=== PATIENT | female | born 1995 | race Two or more races ===

== ENCOUNTER 2024-09-21 10:45 | Outpatient (AMB) | payer MEDICAID, SELFPAY ==
--- NOTE | 2024-09-21 11:03 | OBCLNT_ITS ---
Vital Signs 09/21/24 11:09 Height 1.57 m Height Method Stated Weight 50.405 kg Weight Measurement Method Standing Scale BMI 20.3 BP 101/63 Blood Pressure Source Automatic Cuff Blood Pressure Location Left Upper Arm Position Sitting Respiration 18 Pulse 91 Pulse Source Monitor Temp 97.2 F Temp Source Oral Pulse Oximetry (%) 98 Oxygen Delivery Method Room Air Allergies/Home Meds Allergies & Medications Allergies No Known Allergies Allergy (Verified 09/21/24 11:04) Medication Reconciliation vits no.124-ferrous fum 27 mg iron-folic acid 800 mcg tablet ( Vitamin) 1 tab PO QDAY 06/29/23 [History Confirmed 09/21/24] Intake Visit Data Collection New Patient or Established: Established Patient (seen at 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 1. Little interest or pleasure in doing things: not at all 2. Feeling down, depressed, or hopeless: not at all Total score: 0 PHQ-9 3. Trouble falling or staying asleep, or sleeping too much: Not at all 4. Feeling tired or having little energy: Not at all 5. Poor appetite or overeating: Not at all 6. Feeling bad about yourself - or that you are a failure or have let yourself or your family down: Not at all 7. Trouble concentrating on things, such as reading the newspaper or watching television: Not at all 8. Moving or speaking so slowly that other people could have noticed? - Or the opposite - being so fidgety or restless that you have been moving around a lot more than usual: not at all 9. Thoughts that you would be better off or of hurting yourself in some way: Not at all Total score: 0 If you checked off any problems, how difficult have these problems made it for you to do your work, take care of things at home, or get along with other people?: not difficult at all Source: Developed by Drs. Saeed Alvarez, Maye Winter, Mitchel Owen and colleagues, with an educational karla from [employer]. Depression screen completed yes Social History Living Situation History Marital Status: Lives With: Family Housing: House Tobacco History Smoking Status: Never smoker Second Hand Smoke Exposure: No Alcohol History Alcohol Intake: Never Domestic Abuse History Do You Feel Safe at Home: Yes Past Medical History Past Medical History Have you ever been diagnosed with any of the following: Neurological Problems Seizures: No Cardiology Problems Congestive Heart Failure: No Respiratory Problems Chronic Obstructive Pulmonary Disease (COPD): No Stomache/Intestinal Problems Hepatitis: No Gall Bladder Disease: Yes ( Colorectal Cancer: No Genital/Urinary Problems Renal Disease: No Kidney Stones: No Polycystic Kidney Disease: No Neurogenic Bladder: No Inguinal Hernia: No Dialysis: No Reproductive Problems Breast Cancer: No Pelvic Inflammatory Disease: No Musculoskeletal Problems Bone Cancer: No Endocrine Problems Diabetes Mellitus Type 1: No Diabetes Mellitus Type 2: No Blood Problems Anemia: Yes Leukemia: No Hemophilia: No Thalassemia: No Sickle Cell Disease: No Clotting Problems: No Other Problems Blood Transfusions: No Blood Transfusion Reaction: No Anesthesia Reactions: No MRSA: No VRSA: No Vancomycin-Resistant Enterococci: No Human Immunodeficiency Virus (HIV): No Chicken Pox: No Measles: No Mumps: No Rubella (Sri Lankan Measles): No Pertussis: No Clostridium Difficile: No Cancer: No Cervical Cancer: No Lung Cancer: No Ovarian Cancer: No History of Present Illness HPI Narrative 29 yo for OBI. LMP 07/22/24. EDC 04/29/25. Menses q month x 4-5. happy with results of . no SAB complaints. c/o tiredness and increased saliva. No PMH, no social habit. c/s x2. first c/s was for distress. Father involved. OB Initial Visit OB Flowsheet OB Flowsheet Initial Weight: Not Recorded Date -?-?-?-?-?-?-?-?-?-?-?-?- EGA Weight Edema CTX Effacement BP Fundal ht Pres Dilation Effacement Station Visit Note Alb Glu FHR Mov 09/21/24 -?-?-?-?-?-?-?-?-?-?-?-?- 8w 5d 50.405 kg absent absent 101/63 8.0 29 yo for OBI. No SAB complaints. feels tired. For repeat c/s. OB panel today. schedule OB sono for viability. discuss SAB precaution. discuss diet and rest. continue PNV. RTC 4 week OB check Menstrual History Menstrual reliability: definite Flow: normal Menstrual regularity: regular Monthly: Yes Age at menarche: 11 On control pills at conception: Yes Associated symptoms (LMP): Reports fatigue OB History : 4 Para: 2 Hx # Pregnancies: 0 Hx Total # of Abortions (Spontaneous & Elective): 1 # of Living Children: 2 Delivery History 1st : Child's name: JERICHO date: 06/28/19 sex: female Delivery type: weight (lbs): 5896.701 g History of depression before or after : No 2nd : Child's name: DALE THOMAS date: 06/28/23 sex: male Delivery type: History of depression before or after : No Infection History & Risk Evaluation History of STDs: none HIV risk evaluation: low risk Hepatitis B risk evaluation: low risk Patient or partner has history of Genital Herpes: No Varicella/chicken pox status: immunized Genetic Screening & History Genetic Screening/Teratology Counseling - Includes patient, baby's father, or anyone in either family with: 1. Patient's age 35 years or older as of estimated date of delivery: No 2. Thalassemia (Uzbek, Bulgarian, Mediterranean, or Background); MCV less than 80: No 3. Neural Tube Defect (Meningomyelocele, Spina Bifida, or Anencephaly): No 4. Congenital Heart Defect: No 5. Down Syndrome: No 6. Shantanu-Sachs (Ashkenazi Anglican, Cajun, Frisian Bhutanese): No 7. Kory Disease (Ashkenazi Anglican): No 8. Familial Dysautonomia (Ashkenazi Anglican): No 9. Sickle Cell Disease or Trait (): No 10. Hemophilia or other blood disorders: No 11. Muscular Dystrophy: No 12. Cystic Fibrosis: No 13. Jeremy's Chorea: No 14. Mental Retardation/Autism: No 15. Other inherited genetic or chromosomal disorder: No 16. Maternal Metabolic Disorder (EG,TYPE 1 Diabetes, PKU): No 17. Patient or baby's father had a child with defects not listed above: No 18. Recurrent loss or a stillbirth: No 19. Medications (including supplements, vitamins, herbs or otc drugs)/illicit/recreational drugs/alcohol since last menstrual period: No 20. Any other: No Infection History 1. Live with someone with TB or exposed to TB: No 2. Rash or viral illness since last menstrual period: No 3. Hepatitis B,C: No Other (see comments) Source: [employer] Review of Systems Review of Systems Systems Reviewed: All systems reviewed, normal except as documented Constitutional Constitutional: Reports fatigue Endocrine Endocrine: Reports fatigue Exam Narrative Physical exam: 8 week size, low transverse skin incision General Limitations: no limitations General Appearance: alert, in no apparent distress, comfortable, cooperative, healthy appearing, well developed and well groomed Head Head exam: atraumatic, normocephalic and normal inspection Chest Chest inspection: Present normal inspection and symmetric chest wall rise Resp Respiratory exam: Present normal lung sounds bilaterally Card Cardiovascular exam: Present regular rate, normal rhythm and normal heart sounds Abdominal Abdominal exam: Present soft, normal bowel sounds and scar (low transverse skin incision) Psych Psychiatric exam: Present normal affect and normal mood Assessment & Plan Diagnosis / Problem List (1) Encounter for supervision of normal in multigravida in first trimester: Status: Acute (2) Previous section: Status: Acute Plan OB panel today, schedule OB sono for viability and Dates, sab precaution, continue PNV, comfort measure for 1st tri discomfort. RTC 4 week OBC Additional Plan Follow Up: 4 Weeks (obc) Office Procedures OB Clinic LOC & Office Proc's Nursing/Assessment Patient Status: Established Patient OB Clinic Nursing Assessment: BP Monitoring, Medication Reconciliation, Update PMH in EMR and Vital Signs OB Clinic Coordination of Care: Education Complex Pt/Fam, Consent,records obtained, informed consent, Lab and Imaging orders and Staff clarify orders Established Patient Charge Established Patient Point Assignment: 95 Established Patient Point Charge: EP Level 3 (80-115)
[2024-09-21 11:09] VITALS: BP 101/63; PULSE 91; RESP 18; TEMP 36.2; O2SAT 98; BMI 20.3
== END 2024-09-21 11:29 | disposition home or self-care (01) ==
LOC: HODSOBC 10:45
PROVIDERS: Supervising Provider Advanced Practice Midwife; Visit Provider Advanced Practice Midwife
DX: O09.291 Supervision of pregnancy with other poor reproductive or obstetric history, first trimester (principal); Z3A.08 8 weeks gestation of pregnancy; O34.211 Maternal care for low transverse scar from previous cesarean delivery
CPT/HCPCS: 99213; G0463

== ENCOUNTER 2024-10-23 08:25 | Outpatient (AMB) | payer MEDICAID, SELFPAY ==
[2024-10-23 08:36] VITALS: BP 101/68; PULSE 79; RESP 15; TEMP 36.6; O2SAT 98; BMI 21.0
--- NOTE | 2024-10-23 08:36 | OBCLNT_ITS ---
Vital Signs 10/23/24 08:36 Height 1.57 m Height Method Stated Weight 51.88 kg Weight Measurement Method Standing Scale BMI 21.0 BP 101/68 Blood Pressure Source Automatic Cuff Blood Pressure Location Right Upper Arm Position Sitting Respiration 15 Pulse 79 Pulse Source Monitor Temp 97.8 F Temp Source Oral Pulse Oximetry (%) 98 Oxygen Delivery Method Room Air Allergies/Home Meds Allergies & Medications Allergies No Known Allergies Allergy (Verified 10/23/24 08:37) Medication Reconciliation vits no.124-ferrous fum 27 mg iron-folic acid 800 mcg tablet ( Vitamin) 1 tab PO QDAY 06/29/23 [History Confirmed 10/23/24] doxylamine 10 mg-pyridoxine (vit B6) 10 mg tablet,delayed release (Diclegis) 1 tab PO BID 30 days #60 tabs 10/23/24 [Rx] Intake Visit Data Collection New Patient or Established: Established Patient (seen at [facility] within 3 years) Reason for Visit:: CARE Seen by Clinical Staff ONLY (RN/MA): No Private Investigator Surveillance Required: No Do You Feel Safe at Home: Yes Authorities Contacted: N/A PCP or OBGYN visit in last 3 months: Yes Hx Now: Yes Are you currently on any form of Control: No Pain Present Currently: No Pain Scale Used: Cunningham-Boyd/Numerical Pain scale:: 0 Smoking Status Smoking Status: Never smoker Questionnaires Covid-19 Vaccine Questionnaire Has patient been vacinated for Covid-19 Have you been vacinated for Covid-19: Yes PHQ-9 PHQ-2 Over the last 2 weeks, how often have you been bothered by any of the following problems? 1. Little interest or pleasure in doing things: not at all 2. Feeling down, depressed, or hopeless: not at all Total score: 0 PHQ-9 3. Trouble falling or staying asleep, or sleeping too much: Not at all 4. Feeling tired or having little energy: Not at all 5. Poor appetite or overeating: Not at all 6. Feeling bad about yourself - or that you are a failure or have let yourself or your family down: Not at all 7. Trouble concentrating on things, such as reading the newspaper or watching television: Not at all 8. Moving or speaking so slowly that other people could have noticed? - Or the opposite - being so fidgety or restless that you have been moving around a lot more than usual: not at all 9. Thoughts that you would be better off or of hurting yourself in some way: Not at all Total score: 0 Source: Developed by Drs. Saeed Alvarez, Maey Winter, Mitchel Owen and colleagues, with an educational karla from [facility]. 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 No SAB complaints. feels tired. For repeat c/s. OB panel today. schedule OB sono for viability. discuss SAB precaution. discuss diet and rest. continue PNV. RTC 4 week OB check 10/23/24 -?-?-?-?-?-?-?-?-?-?-?-?- 10w 3d 51.88 kg 101/68 absent unknown 10 135 absent doing well. denies sab complaints, increase nausea and vomiting. NIPT and carrier screen today, labs pending, schedule MFM sono. comfort measure for nausea. diclegesis, review sab precaution, rtc 4 week MARNIE Calculator Estimated Delivery Date Method Current WG Current Estimate 05/18/25 Ultrasound #1 10w 3d Other Estimates 04/28/25 LMP (Certain) 13w 2d Notes Visit Date: 10/23/24 Last Updated by: Simona Spencer CNM 29 yo sono 09/29/24: 7 week: 05/18/25. Prev c/s x1. wrong dates Office Procedures OB Clinic LOC & Office Proc's Nursing/Assessment Patient Status: Established Patient OB Clinic Nursing Assessment: Medication Reconciliation, Update PMH in EMR and Vital Signs OB Clinic Coordination of Care: Complex Care and Chronic Disease 1-5, Consent,records obtained, informed consent, Education Simp Pt/Fam, Lab and Imaging orders, Results/Orders obtained and Staff clarify orders Special Needs: Heart tones Established Patient Charge Established Patient Point Assignment: 135 Established Patient Point Charge: EP Level 4 (120-155) Assessment & Plan Diagnosis / Problem List (1) Encounter for supervision of normal in multigravida in first trimester: Status: Acute Plan NIPT and carrier screen today, schedule MFM anatomy scan, sab precaution,rtc 4 week ob check, diclegesis bid #60, comfort measure for nausea Additional Plan Follow Up: 4 Weeks (obc)
== END 2024-10-23 09:05 | disposition home or self-care (01) ==
LOC: HODSOBC 08:25
PROVIDERS: Supervising Provider Advanced Practice Midwife; Visit Provider Advanced Practice Midwife
DX: Z34.81 Encounter for supervision of other normal pregnancy, first trimester (principal); Z3A.10 10 weeks gestation of pregnancy
CPT/HCPCS: 99214; G0463

== ENCOUNTER 2024-11-29 08:47 | Outpatient (AMB) | payer MEDICAID, SELFPAY ==
[2024-11-29 09:04] VITALS: BP 98/62; PULSE 84; RESP 17; TEMP 36.5; O2SAT 98; BMI 22.1
--- NOTE | 2024-11-29 09:04 | AMB.OBVISIT ---
Vital Signs 11/29/24 09:04 Height 1.57 m Height Method Stated Weight 54.601 kg Weight Measurement Method Standing Scale BMI 22.1 BP 98/62 Blood Pressure Source Automatic Cuff Blood Pressure Location Right Upper Arm Position Sitting Respiration 17 Pulse 84 Pulse Source Monitor Temp 97.7 F Temp Source Temporal Artery Scan Pulse Oximetry (%) 98 Oxygen Delivery Method Room Air Allergies/Home Meds Allergies & Medications Allergies No Known Allergies Allergy (Verified 11/29/24 09:06) Medication Reconciliation vits no.124-ferrous fum 27 mg iron-folic acid 800 mcg tablet ( Vitamin) 1 tab PO QDAY 06/29/23 [History Confirmed 11/29/24] doxylamine 10 mg-pyridoxine (vit B6) 10 mg tablet,delayed release (Diclegis) 1 tab PO BID 30 days #60 tabs 10/23/24 [Rx Confirmed 11/29/24] Intake Visit Data Collection New Patient or Established: Established Patient (seen at [facility] within 3 years) Reason for Visit:: OBC Seen by Clinical Staff ONLY (RN/MA): No Manager Of Creative Services Required: No Do You Feel Safe at Home: Yes Authorities Contacted: N/A PCP or OBGYN visit in last 3 months: Yes Date of Last PCP or OBGYN visit: 10/23/24 Hx Now: Yes Are you currently on any form of Control: No Smoking Status Smoking Status: Never smoker Questionnaires Covid-19 Vaccine Questionnaire Has patient been vacinated for Covid-19 Have you been vacinated for Covid-19: No PHQ-9 PHQ-2 Over the last 2 weeks, how often have you been bothered by any of the following problems? 1. Little interest or pleasure in doing things: not at all 2. Feeling down, depressed, or hopeless: not at all Total score: 0 PHQ-9 3. Trouble falling or staying asleep, or sleeping too much: Not at all 4. Feeling tired or having little energy: Not at all 5. Poor appetite or overeating: Not at all 6. Feeling bad about yourself - or that you are a failure or have let yourself or your family down: Not at all 7. Trouble concentrating on things, such as reading the newspaper or watching television: Not at all 8. Moving or speaking so slowly that other people could have noticed? - Or the opposite - being so fidgety or restless that you have been moving around a lot more than usual: not at all 9. Thoughts that you would be better off or of hurting yourself in some way: Not at all Total score: 0 If you checked off any problems, how difficult have these problems made it for you to do your work, take care of things at home, or get along with other people?: not difficult at all Source: Developed by Drs. Saeed Alvarez, Maye Winter, Mitchel Owen and colleagues, with an educational karla from [employer]. 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 No SAB complaints. feels tired. For repeat c/s. OB panel today. schedule OB sono for viability. discuss SAB precaution. discuss diet and rest. continue PNV. RTC 4 week OB check 10/23/24 <del>?</del> 10w 3d 51.88 kg 101/68 absent unknown 10 135 absent doing well. denies sab complaints, increase nausea and vomiting. NIPT and carrier screen today, labs pending, schedule MFM sono. comfort measure for nausea. diclegesis, review sab precaution, rtc 4 week 11/29/24 <del>?</del> 15w 5d 54.601 kg 98/62 absent unknown 16 145 active no OB complaints. c/s x2. fetus active, no sab complaints AFP today. M on 12/18. discuss comfort measure for 2nd tri, discuss sab precaution. rtc 4 week MARNIE Calculator Estimated Delivery Date Method Current WG Current Estimate 05/18/25 Ultrasound #1 15w 5d Other Estimates 04/28/25 LMP (Certain) 18w 4d Notes Visit Date: 11/29/24 Last Updated by: Simona Spencer CNM OB panel: O+,abs-,rpr;;nr, rub imm, hbsag-, hiv-, HC-, GC/CT-, NIPT:neg/boy, CF/SMA- Visit Date: 10/23/24 Last Updated by: Simona Spencer CNM 29 yo sono 09/29/24: 7 week: 05/18/25. Prev c/s x1. wrong dates Office Procedures OB Clinic LOC & Office Proc's Nursing/Assessment Patient Status: Established Patient OB Clinic Nursing Assessment: Medication Reconciliation, Update PMH in EMR and Vital Signs OB Clinic Coordination of Care: Complex Care and Chronic Disease 1-5, Consent,records obtained, informed consent, Education Simp Pt/Fam and Staff clarify orders Special Needs: Heart tones Established Patient Charge Established Patient Point Assignment: 115 Established Patient Point Charge: EP Level 3 (80-115) Assessment & Plan Diagnosis / Problem List (1) Encounter for supervision of normal in multigravida in second trimester: Status: Acute Plan discuss lab results, discuss sab precaution. comfort measure for 2nd tri, [facility], rtc 4 week Additional Plan Follow Up: 4 Weeks (obc)
== END 2024-11-29 09:19 | disposition home or self-care (01) ==
LOC: HODSOBC 08:47
PROVIDERS: PCP Advanced Practice Midwife; Referring Provider Advanced Practice Midwife; Supervising Provider Advanced Practice Midwife; Visit Provider Advanced Practice Midwife
DX: Z34.82 Encounter for supervision of other normal pregnancy, second trimester (principal); Z3A.15 15 weeks gestation of pregnancy
CPT/HCPCS: 99213; G0463

== ENCOUNTER 2024-12-28 08:50 | Outpatient (AMB) | payer MEDICAID, SELFPAY ==
[2024-12-28 08:59] VITALS: BP 99/65; PULSE 98; RESP 17; TEMP 36.6; O2SAT 97; BMI 22.8
--- NOTE | 2024-12-28 08:59 | OBCLNT_ITS ---
Vital Signs 12/28/24 08:59 Height 1.57 m Height Method Stated Weight 56.472 kg Weight Measurement Method Standing Scale BMI 22.8 BP 99/65 Blood Pressure Source Automatic Cuff Blood Pressure Location Right Upper Arm Position Sitting Respiration 17 Pulse 98 Pulse Source Monitor Temp 97.8 F Temp Source Temporal Artery Scan Pulse Oximetry (%) 97 Oxygen Delivery Method Room Air Allergies/Home Meds Allergies & Medications Allergies No Known Allergies Allergy (Verified 12/28/24 09:00) Medication Reconciliation vits no.124-ferrous fum 27 mg iron-folic acid 800 mcg tablet ( Vitamin) 1 tab PO QDAY 06/29/23 [History Confirmed 12/28/24] doxylamine 10 mg-pyridoxine (vit B6) 10 mg tablet,delayed release (Diclegis) 1 tab PO BID 30 days #60 tabs 10/23/24 [Rx Confirmed 12/28/24] vits no.130-ferrous fum 27 mg iron-folic acid 800 mcg tablet ( Vitamin) 1 tab PO QDAY pregancy #60 tabs 12/28/24 [Rx] Intake Visit Data Collection New Patient or Established: Established Patient (seen at [facility] within 3 years) Reason for Visit:: [facility] [id number] Seen by Clinical Staff ONLY (RN/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 1. Little interest or pleasure in doing things: not at all 2. Feeling down, depressed, or hopeless: not at all Total score: 0 PHQ-9 3. Trouble falling or staying asleep, or sleeping too much: Not at all 4. Feeling tired or having little energy: Not at all 5. Poor appetite or overeating: Not at all 6. Feeling bad about yourself - or that you are a failure or have let yourself or your family down: Not at all 7. Trouble concentrating on things, such as reading the newspaper or watching television: Not at all 8. Moving or speaking so slowly that other people could have noticed? - Or the opposite - being so fidgety or restless that you have been moving around a lot more than usual: not at all 9. Thoughts that you would be better off or of hurting yourself in some way: Not at all Total score: 0 If you checked off any problems, how difficult have these problems made it for you to do your work, take care of things at home, or get along with other people?: not difficult at all Source: Developed by Drs. Saeed Alvarez, Maye Winter, Mitchel Owen and colleagues, with an educational karla from [employer]. 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 No SAB complaints. feels tired. For repeat c/s. OB panel today. schedule OB sono for viability. discuss SAB precaution. discuss diet and rest. continue PNV. RTC 4 week OB check 10/23/24 -?-?-?-?-?-?-?-?-?-?-?-?- 10w 3d 51.88 kg 101/68 absent unknown 10 135 absent doing well. denies sab complaints, increase nausea and vomiting. NIPT and carrier screen today, labs pending, schedule MFM sono. comfort measure for nausea. diclegesis, review sab precaution, rtc 4 week 11/29/24 -?--?-?-?-?-?-?-?-?-?-?-?- 15w 5d 54.601 kg 98/62 absent unknown 16 145 active no OB complaints. c/s x2. fetus active, no sab complaints AFP today. MFM on 12/18. discuss comfort measure for 2nd tri, discuss sab precaution. rtc 4 week 12/28/24 -?-?-?-?-?-?-?-?-?-?-?-?- 19w 6d 56.472 kg 99/65 absent unknown 19 145 active No OB complaints today. Denies leaking, denies bleeding, denies contractions. Patient is a previous section x 2 aFP today. Ruth ent will be referred to OB at 28 weeks because of repeat . Discussed labor precautions. Return in 4 weeks OB check MARNIE Calculator Estimated Delivery Date Method Current WG Current Estimate 05/18/25 Ultrasound #1 19w 6d Other Estimates 04/28/25 LMP (Certain) 22w 5d 05/18/25 Ultrasound #2 19w 6d Notes Visit Date: 12/28/24 Last Updated by: Simona Spencer CNM 29 yo . Previous c/sx2. No dates. sono 09/29/24: IUP 7w. EDC : 05/18/25 Visit Date: 11/29/24 Last Updated by: Simona Spencer CNM OB panel: O+,abs-,rpr;;nr, rub imm, hbsag-, hiv-, HC-, GC/CT-, NIPT:neg/boy, CF/SMA- Visit Date: 10/23/24 Last Updated by: Simona Spencer CNM 29 yo sono 09/29/24: 7 week: 05/18/25. Prev c/s x1. wrong dates Office Procedures OB Clinic LOC & Office Proc's Nursing/Assessment Patient Status: Established Patient OB Clinic Nursing Assessment: Medication Reconciliation, Update PMH in EMR and Vital Signs OB Clinic Coordination of Care: Complex Care and Chronic Disease 1-5, Co nsent,records obtained, informed consent, Education Simp Pt/Fam and Staff clarify orders Special Needs: Heart tones Established Patient Charge Established Patient Point Assignment: 115 Established Patient Point Charge: EP Level 3 (80-115) Assessment & Plan Diagnosis / Problem List (1) Encounter for supervision of normal in multigravida in second trimester: Status: Acute Plan aFP today 2. Discussed labor precautions. Continue prenatals. Increase fluids. Return in 4 weeks for OB check. Referred to OB at 28 weeks for repeat Additional Plan Follow Up: 4 Weeks (obc)
== END 2024-12-28 09:40 | disposition home or self-care (01) ==
LOC: HODSOBC 08:50
PROVIDERS: Supervising Provider Advanced Practice Midwife; Visit Provider Advanced Practice Midwife
DX: O09.292 Supervision of pregnancy with other poor reproductive or obstetric history, second trimester (principal); O34.219 Maternal care for unspecified type scar from previous cesarean delivery; Z3A.19 19 weeks gestation of pregnancy
CPT/HCPCS: 99213; G0463

== ENCOUNTER 2025-01-25 09:41 | Outpatient (AMB) | payer MEDICAID, SELFPAY ==
[2025-01-25 09:48] VITALS: BP 100/63; PULSE 102; RESP 17; TEMP 36.6; O2SAT 97; BMI 23.7
--- NOTE | 2025-01-25 09:48 | OBCLNT_ITS ---
Vital Signs 01/25/25 09:48 Height 1.57 m Height Method Stated Weight 58.57 kg Weight Measurement Method Standing Scale BMI 23.7 BP 100/63 Blood Pressure Source Automatic Cuff Blood Pressure Location Right Upper Arm Position Sitting Respiration 17 Pulse 102 H Pulse Source Monitor Temp 97.9 F Temp Source Temporal Artery Scan Pulse Oximetry (%) 97 Oxygen Delivery Method Room Air Allergies/Home Meds Allergies & Medications Allergies No Known Allergies Allergy (Verified 01/25/25 10:00) Medication Reconciliation vits no.130-ferrous fum 27 mg iron-folic acid 800 mcg tablet ( Vitamin) 1 tab PO QDAY pregancy #60 tabs 12/28/24 [Rx Confirmed 01/25/25] Intake Visit Data Collection New Patient or Established: Established Patient (seen at [facility] within 3 years) Reason for Visit:: OBC Seen by Clinical Staff ONLY (RN/MA): No 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 1. Little interest or pleasure in doing things: not at all 2. Feeling down, depressed, or hopeless: not at all Total score: 0 PHQ-9 3. Trouble falling or staying asleep, or sleeping too much: Not at all 4. Feeling tired or having little energy: Not at all 5. Poor appetite or overeating: Not at all 6. Feeling bad about yourself - or that you are a failure or have let yourself or your family down: Not at all 7. Trouble concentrating on things, such as reading the newspaper or watching television: Not at all 8. Moving or speaking so slowly that other people could have noticed? - Or the opposite - being so fidgety or restless that you have been moving around a lot more than usual: not at all 9. Thoughts that you would be better off or of hurting yourself in some way: Not at all Total score: 0 If you checked off any problems, how difficult have these problems made it for you to do your work, take care of things at home, or get along with other people?: not difficult at all Source: Developed by Drs. Saeed Alvarez, Maye Winter, Mitchel Owen and colleagues, with an educational karla from [employer]. 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 No SAB complaints. feels tired. For repeat c/s. OB panel today. schedule OB sono for viability. discuss SAB precaution. discuss diet and rest. continue PNV. RTC 4 week OB check 10/23/24 -?-?-?-?-?-?-?-?-?-?-?-?- 10w 3d 51.88 kg 101/68 absent unknown 10 135 absent doing well. denies sab complaints, increase nausea and vomiting. NIPT and carrier screen today, labs pending, schedule MFM sono. comfort measure for nausea. diclegesis, review sab precaution, rtc 4 week 11/29/24 -?-?-?-?-?-?-?-?-?-?-?-?- 15w 5d 54.601 kg 98/62 absent unknown 16 145 active no OB complaints. c/s x2. fetus active, no sab complaints AFP today. MFM on 12/18. discuss comfort measure for 2nd tri, discuss sab precaution. rtc 4 week 12/28/24 -?-?-?-?-?-?-?-?-?-?-?-?- 19w 6d 56.472 kg 99/65 absent unknown 19 145 active No OB complaints today. Denies leaking, denies bleeding, denies contractions. Patient is a previous section x 2 aFP today. Ruth ent will be referred to OB at 28 weeks because of repeat . Discussed labor precautions. Return in 4 weeks OB check 01/25/25 -?-?-?-?-?-?-?-?-?-?-?-?- 23w 6d 58.57 kg 100/63 absent unknown 23 145 active Previous x 2. No OB complaints. Denies leaking, bleeding, contractions patient is compliant with her vitamins Sched ule with OB for medical management because of previous x 2. Third trimester labs today. Discussed labor precautions. Continue prenatals. Increase fluids MARNIE Calculator Estimated Delivery Date Method Current WG Current Estimate 05/18/25 Ultrasound #1 23w 6d Other Estimates 04/28/25 LMP (Certain) 26w 5d 05/18/25 Ultrasound #2 23w 6d Notes Visit Date: 01/25/25 Last Updated by: Simona Spencer CNM OB panel: O+,abs-, rpr;;nr, rub imm, hbsag-,hiv-,GC/CT-, HC-, NIPT/carrier screen- Visit Date: 12/28/24 Last Updated by: Simona Spencer CNM 29 yo . Previous c/sx2. No dates. sono 09/29/24: IUP 7w. EDC : 05/18/25 Visit Date: 11/29/24 Last Updated by: Simona Spencer CNM OB panel: O+,abs-,rpr;;nr, rub imm, hbsag-, hiv-, HC-, GC/CT-, NIPT:neg/boy, CF/SMA- Visit Date: 10/23/24 Last Updated by: Simona Spencer CNM 29 yo sono 09/29/24: 7 week: 05/18/25. Prev c/s x1. wrong dates Office Procedures OB Clinic LOC & Office Proc's Nursing/Assessment Patient Status: Established Patient OB Clinic Nursing Assessment: Medication Reconciliation, Update PMH in EMR and Vital Signs OB Clinic Coordination of Care: Complex Care and Chronic Disease 1-5, Consent ,records obtained, informed consent, Education Simp Pt/Fam, Results/Orders obtained and Staff clarify orders Special Needs: Heart tones Established Patient Charge Established Patient Point Assignment: 120 Established Patient Point Charge: EP Level 4 (120-155) Assessment & Plan Diagnosis / Problem List (1) Encounter for supervision of normal in multigravida in second trimester: Status: Acute (2) Previous section: Status: Acute Plan Third trimester labs today. Continue vitamins and iron. Tylenol ibuprofen for pain. Discussed danger signs symptoms and ER precautions. Return in 4 weeks with MD for medical management due to previous section x 2 Additional Plan Follow Up: 4 Weeks (obc)
== END 2025-01-25 10:11 | disposition home or self-care (01) ==
LOC: HODSOBC 09:41
PROVIDERS: Supervising Provider Advanced Practice Midwife; Visit Provider Advanced Practice Midwife
DX: O09.292 Supervision of pregnancy with other poor reproductive or obstetric history, second trimester (principal); O34.219 Maternal care for unspecified type scar from previous cesarean delivery; Z3A.23 23 weeks gestation of pregnancy
CPT/HCPCS: 99214; G0463

== ENCOUNTER 2025-02-27 11:31 | Outpatient (AMB) | payer MEDICAID, SELFPAY ==
[2025-02-27 11:41] VITALS: BP 106/65; PULSE 102; RESP 20; TEMP 36.4; O2SAT 97; BMI 25.0
--- NOTE | 2025-02-27 11:41 | OBCLNT_ITS ---
Vital Signs 02/27/25 11:41 Height 1.57 m Height Method Stated Weight 61.745 kg Weight Measurement Method Standing Scale BMI 25.0 BP 106/65 Blood Pressure Source Automatic Cuff Blood Pressure Location Left Upper Arm Position Sitting Respiration 20 Pulse 102 H Pulse Source Monitor Temp 97.6 F Temp Source Oral Pulse Oximetry (%) 97 Oxygen Delivery Method Room Air Allergies/Home Meds Allergies & Medications Allergies No Known Allergies Allergy (Verified 02/27/25 11:43) Medication Reconciliation vits no.130-ferrous fum 27 mg iron-folic acid 800 mcg tablet ( Vitamin) 1 tab PO QDAY pregancy #60 tabs 12/28/24 [Rx Confirmed 02/27/25] Intake Visit Data Collection New Patient or Established: Established Patient (seen at [facility] within 3 years) Reason for Visit:: CARE Seen by Clinical Staff ONLY (RN/MA): No Rn Telehealth Required: No Do You Feel Safe at Home: Yes Authorities Contacted: N/A PCP or OBGYN visit in last 3 months: Yes Hx Now: No Are you currently on any form of Control: No Pain Present Currently: No Pain Scale Used: Cunningham-Boyd/Numerical Pain scale:: 0 Smoking Status Smoking Status: Never smoker Questionnaires Covid-19 Vaccine Questionnaire Has patient been vacinated for Covid-19 Have you been vacinated for Covid-19: Yes PHQ-9 PHQ-2 Over the last 2 weeks, how often have you been bothered by any of the following problems? 1. Little interest or pleasure in doing things: not at all 2. Feeling down, depressed, or hopeless: not at all Total score: 0 PHQ-9 3. Trouble falling or staying asleep, or sleeping too much: Not at all 4. Feeling tired or having little energy: Not at all 5. Poor appetite or overeating: Not at all 6. Feeling bad about yourself - or that you are a failure or have let yourself or your family down: Not at all 7. Trouble concentrating on things, such as reading the newspaper or watching television: Not at all 8. Moving or speaking so slowly that other people could have noticed? - Or the opposite - being so fidgety or restless that you have been moving around a lot more than usual: not at all 9. Thoughts that you would be better off or of hurting yourself in some way: Not at all Total score: 0 Source: Developed by Drs. Saeed Alvarez, Maye Winter, Mitchel Owen and colleagues, with an educational karla from [employer]. 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 No SAB complaints. feels tired. For repeat c/s. OB panel today. schedule OB sono for viability. discuss SAB precaution. discuss diet and rest. continue PNV. RTC 4 week OB check 10/23/24 -?-?-?-?-?-?-?-?-?-?-?-?- 10w 3d 51.88 kg 101/68 absent unknown 10 135 absent doing well. denies sab complaints, increase nausea and vomiting. NIPT and carrier screen today, labs pending, schedule MFM sono. comfort measure for nausea. diclegesis, review sab precaution, rtc 4 week 11/29/24 -?-?-?-?-?-?-?-?-?-?-?-?- 15w 5d 54.601 kg 98/62 absent unknown 16 145 active no OB complaints. c/s x2. fetus active, no sab complaints AFP today. MFM on 12/18. discuss comfort measure for 2nd tri, discuss sab precaution. rtc 4 week 12/28/24 -?-?-?-?-?-?-?-?-?-?-?-?- 19w 6d 56.472 kg 99/65 absent unknown 19 145 active No OB complaints today. Denies leaking, denies bleeding, denies contractions. Patient is a previous section x 2 aFP today. Ruth ent will be referred to OB at 28 weeks because of repeat . Discussed labor precautions. Return in 4 weeks OB check 01/25/25 -?-?-?-?-?-?-?-?-?-?-?-?- 23w 6d 58.57 kg 100/63 absent unknown 23 145 active Previous x 2. No OB complaints. Denies leaking, bleeding, contractions patient is compliant with her vitamins Sched ule with OB for medical management because of previous x 2. Third trimester labs today. Discussed labor precautions. Continue prenatals. Increase fluids 02/27/25 -?-?-?-?-?-?-?-?-?-?-?-?- 28w 4d 61.745 kg 106/65 absent unknown 29 160 active - has been uneventful so far. - Patient's estimated due date is 2024. - scheduled for 05/11/2025 (39 weeks). - No current contractions reported. - One-hour glucose screening test was hi gh, requiring a 3-hour glucose tolerance test for diagnosis. - Schedule 3 -hour glucose tolerance test (patient to fast for at least 8 hours and drink enough water before the test) - Provide order for 3-hour glucose dirk ance test - scheduled for May 11 025 - Follow up appointment in 2 weeks - Patient to make [facility] appointment fo r glucose test MARNIE Calculator Estimated Delivery Date Method Current WG Current Estimate 05/18/25 Ultrasound #1 28w 4d Other Estimates 04/28/25 LMP (Certain) 31w 3d 05/18/25 Ultrasound #2 28w 4d Notes Visit Date: 01/25/25 Last Updated by: Simona Spencer CNM OB panel: O+,abs-, rpr;;nr, rub imm, hbsag-,hiv-,GC/CT-, HC-, NIPT/carrier screen- Visit Date: 12/28/24 Last Updated by: Simona Spencer CNM 29 yo . Previous c/sx2. No dates. sono 09/29/24: IUP 7w. EDC : 05/18/25 Visit Date: 11/29/24 Last Updated by: Simona Spencer CNM OB panel: O+,abs-,rpr;;nr, rub imm, hbsag-, hiv-, HC-, GC/CT-, NIPT:neg/boy, CF/SMA- Visit Date: 10/23/24 Last Updated by: Simona Spencer CNM 29 yo sono 09/29/24: 7 week: 05/18/25. Prev c/s x1. wrong dates Office Procedures OBC Clinic LOC & Office Proc's Nursing/Assessment Patient Status: Established Patient OB Clinic Nursing Assessment: Medication Reconciliation, Update PMH in EMR and Vital Signs OB Clinic Coordination of Care: Complex Care and Chronic Disease 1-5, C onsent,records obtained, informed consent, Education Simp Pt/Fam, 1 Ins Authorization, Lab and Imaging orders, Results/Orders obtained and Staff clarify orders Special Needs: Heart tones Established Patient Charge Established Patient Point Assignment: 150 Established Patient Point Charge: EP Level 4 (120-155) Assessment & Plan Diagnosis / Problem List (1) Other abnormal glucose: Status: Acute (2) Maternal care for low transverse scar from previous delivery: Status: Acute Plan Problem List - , third trimester - History of section - Abnormal glucose screening test Assessment at 28 weeks 4 days gestation with history of 2 prior sections. MARNIE 05/18/2025. course uneventful to date. One-hour glucose screening test elevated, requiring 3-hour glucose tolerance test for definitive diagnosis of gestational diabetes. scheduled for 05/11/2025 at 39 weeks gestation. Patient reports history of placental abruption in previous . heart rate noted to be 160 bpm, which is within normal range. Plan - Schedule 3-hour glucose tolerance test (patient to fast for at least 8 hours and drink enough water before the test) - Provide order for 3-hour glucose tolerance test - scheduled for May 11, 2025 - Follow up appointment in 2 weeks - Patient to make [facility] appointment for glucose test 1. Progress Reviewed gestational age [28 weeks and 4 days], growth, and heart rate [160 bpm]. Planned frequent visits (every 2 weeks until 36 weeks, then weekly). 2. Instructed patient to monitor movements and report decreases immediately. 3. Testing Counseled on routine third-trimester labs per guidelines. Discussed potential need for ultrasound or monitoring based on risk factors. 4. Preeclampsia Precaution Educated on preeclampsia signs: severe headache, vision changes, right upper quadrant pain, sudden swelling. Advised urgent reporting of symptoms and discussed blood pressure monitoring if high risk. 5. Labor Precautions Reviewed labor signs: regular contractions, pelvic pressure, back pain, bleeding, or fluid leakage. Instructed to seek immediate care for these symptoms. 6. Lifestyle and Delivery Preparation Reinforced vitamins, nutrition, and safe activity. Discussed plan, pain management, and . Advised on labor preparation (e.g., hospital bag) and expectations. 7. Psychosocial Support Assessed emotional well-being and offered resources for mental health or parenting support.
== END 2025-02-27 12:00 | disposition home or self-care (01) ==
LOC: HODSOBC 11:31
PROVIDERS: Supervising Provider Obstetrics & Gynecology; Visit Provider Obstetrics & Gynecology
DX: O09.893 Supervision of other high risk pregnancies, third trimester (principal); O99.810 Abnormal glucose complicating pregnancy; O09.293 Supervision of pregnancy with other poor reproductive or obstetric history, third trimester; O34.211 Maternal care for low transverse scar from previous cesarean delivery; Z3A.28 28 weeks gestation of pregnancy
CPT/HCPCS: 99214; G0463

== ENCOUNTER 2025-03-13 11:18 | Outpatient (AMB) | payer MEDICAID, SELFPAY ==
[2025-03-13 11:23] VITALS: BP 106/68; PULSE 95; RESP 18; TEMP 36.4; O2SAT 97; BMI 25.1
--- NOTE | 2025-03-13 11:23 | OBCLNT_ITS ---
Vital Signs 03/13/25 11:23 Height 1.57 m Height Method Stated Weight 61.915 kg Weight Measurement Method Standing Scale BMI 25.1 BP 106/68 Blood Pressure Source Automatic Cuff Blood Pressure Location Right Upper Arm Position Sitting Respiration 18 Pulse 95 Pulse Source Monitor Temp 97.6 F Temp Source Temporal Artery Scan Pulse Oximetry (%) 97 Oxygen Delivery Method Room Air Allergies/Home Meds Allergies & Medications Allergies No Known Allergies Allergy (Verified 03/13/25 11:26) Medication Reconciliation vits no.130-ferrous fum 27 mg iron-folic acid 800 mcg tablet ( Vitamin) 1 tab PO QDAY pregancy #60 tabs 12/28/24 [Rx Confirmed 03/13/25] blood sugar diagnostic (Blood Glucose Test strips) #50 ea 03/05/25 [Rx Confirmed 03/13/25] blood-glucose meter #1 ea 03/05/25 [Rx Confirmed 03/13/25] lancets #100 ea 03/05/25 [Rx Confirmed 03/13/25] Intake Visit Data Collection New Patient or Established: Established Patient (seen at [facility] within 3 years) Reason for Visit:: OBC 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 Required: No Do You Feel Safe at Home: Yes Authorities Contacted: N/A PCP or OBGYN visit in last 3 months: No Date of Last PCP or OBGYN visit: 02/27/25 Hx Now: Yes Are you currently on any form of Control: No Pain Present Currently: No Pain Scale Used: Cunningham-Boyd/Numerical Pain scale:: 0 Smoking Status Smoking Status: Never smoker Immunizations Flu Vaccine in the Last 12 Months: No Questionnaires Covid-19 Vaccine Questionnaire Has patient been vacinated for Covid-19 Have you been vacinated for Covid-19: Yes PHQ-9 PHQ-2 Over the last 2 weeks, how often have you been bothered by any of the following problems? 1. Little interest or pleasure in doing things: not at all 2. Feeling down, depressed, or hopeless: not at all Total score: 0 PHQ-9 3. Trouble falling or staying asleep, or sleeping too much: Not at all 4. Feeling tired or having little energy: Not at all 5. Poor appetite or overeating: Not at all 6. Feeling bad about yourself - or that you are a failure or have let yourself or your family down: Not at all 7. Trouble concentrating on things, such as reading the newspaper or watching television: Not at all 8. Moving or speaking so slowly that other people could have noticed? - Or the opposite - being so fidgety or restless that you have been moving around a lot more than usual: not at all 9. Thoughts that you would be better off or of hurting yourself in some way: Not at all Total score: 0 If you checked off any problems, how difficult have these problems made it for you to do your work, take care of things at home, or get along with other people?: not difficult at all Source: Developed by Drs. Saeed Alvarez, Maye Winter, Mitchel Owen and colleagues, with an educational karla from [employer]. 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 No SAB complaints. feels tired. For repeat c/s. OB panel today. schedule OB sono for viability. discuss SAB precaution. discuss diet and rest. continue PNV. RTC 4 week OB check 10/23/24 -?-?-?-?-?-?-?-?-?-?-?-?- 10w 3d 51.88 kg 101/68 absent unknown 10 135 absent doing well. denies sab complaints, increase nausea and vomiting. NIPT and carrier screen today, labs pending, schedule MFM sono. comfort measure for nausea. diclegesis, review sab precaution, rtc 4 week 11/29/24 -?-?-?-?-?-?-?-?-?-?-?-?- 15w 5d 54.601 kg 98/62 absent unknown 16 145 active no OB complaints. c/s x2. fetus active, no sab complaints AFP today. MFM on 12/18. discuss comfort measure for 2nd tri, discuss sab precaution. rtc 4 week 12/28/24 -?-?-?-?-?-?-?-?-?-?-?-?- 19w 6d 56.472 kg 99/65 absent unknown 19 145 active No OB complaints today. Denies leaking, denies bleeding, denies contractions. Patient is a previous section x 2 aFP today. Ruth ent will be referred to OB at 28 weeks because of repeat . Discussed labor precautions. Return in 4 weeks OB check 01/25/25 -?-?-?-?-?-?-?-?-?-?-?-?- 23w 6d 58.57 kg 100/63 absent unknown 23 145 active Previous x 2. No OB complaints. Denies leaking, bleeding, contractions patient is compliant with her vitamins Sched ule with OB for medical management because of previous x 2. Third trimester labs today. Discussed labor precautions. Continue prenatals. Increase fluids 02/27/25 -?-?-?-?-?-?-?-?-?-?-?-?- 28w 4d 61.745 kg 106/65 absent unknown 29 160 active - has been uneventful so far. - Patient's estimated due date is 2024. - scheduled for 05/11/2025 (39 weeks). - No current contractions reported. - One-hour glucose screening test was hi gh, requiring a 3-hour glucose tolerance test for diagnosis. - Schedule 3 -hour glucose tolerance test (patient to fast for at least 8 hours and drink enough water before the test) - Provide order for 3-hour glucose dirk ance test - scheduled for May 11 - Follow up appointment in 2 weeks - Patient to make [facility] appointment fo r glucose test 03/13/25 -?-?-?-?-?-?-?-?-?-?-?-?- 30w 4d 61.915 kg 106/68 absent unknown 30 154 active Patient reports good movement. Denies signs symptoms of labor. Denies leaking, bleeding, contractions. No OB complaints today Schedule with OB in 2 weeks. I discussed 3-hour GTT results. Ordered glucometer, lancets, test strips to pharmacy. I reviewed GDM diet with. And I also discussed patient testing 4 times a day. Patient to walk for 40 minutes a day. Schedule weekly NST BPP beginning at 32 weeks. MARNIE Calculator Estimated Delivery Date Method Current WG Current Estimate 05/18/25 Ultrasound #1 30w 4d Other Estimates 04/28/25 LMP (Certain) 33w 3d 05/18/25 Ultrasound #2 30w 4d 05/18/25 Manual 30w 4d final marnie: 04/28 Notes Visit Date: 03/13/25 Last Updated by: Simona Spencer CNM 03/06: 3 hr gtt elevated: fastin, 1 hr and 4 hr elevated Visit Date: 01/25/25 Last Updated by: Simona Spencer CNM OB panel: O+,abs-, rpr;;nr, rub imm, hbsag-,hiv-,GC/CT-, HC-, NIPT/carrier screen- Visit Date: 12/28/24 Last Updated by: Simona Spencer CNM 29 yo . Previous c/sx2. No dates. sono 09/29/24: IUP 7w. EDC : 05/18/25 Visit Date: 11/29/24 Last Updated by: Simona Spencer CNM OB panel: O+,abs-,rpr;;nr, rub imm, hbsag-, hiv-, HC-, GC/CT-, NIPT:neg/boy, CF/SMA- Visit Date: 10/23/24 Last Updated by: Simona Spencer CNM 29 yo sono 09/29/24: 7 week: 05/18/25. Prev c/s x1. wrong dates Office Procedures OBC Clinic LOC & Office Proc's Nursing/Assessment Patient Status: Established Patient OB Clinic Nursing Assessment: Medication Reconciliation, Update PMH in EMR and Vital Signs OB Clinic Coordination of Care: Complex Care and Chronic Disease 1-5, Education Complex Pt/Fam, Consent,records obtained, informed consent, Lab and Imaging orders, Results/Orders obtained and Staff clarify orders Special Needs: Heart tones Established Patient Charge Established Patient Point Assignment: 140 Established Patient Point Charge: EP Level 4 (120-155) Assessment & Plan Diagnosis / Problem List (1) Maternal care for low transverse scar from previous delivery: Status: Acute (2) Diet controlled gestational diabetes mellitus (GDM) in third trimester: Status: Acute Plan Discussed 3-hour GTT. I reviewed GDM diet with patient discussed monitoring glucose 4 times a day. Patient to walk 40 minutes a day. I ordered glucometer, test strips and lancets. And schedule patient to start NST and BPP at 32 weeks. And discussed labor precautions and kick count. And patient will see Dr. Stone in 2 weeks for OB check Additional Plan Follow Up: 2 Weeks (obc)
== END 2025-03-13 11:46 | disposition home or self-care (01) ==
LOC: HODSOBC 11:18
PROVIDERS: Supervising Provider Advanced Practice Midwife; Visit Provider Advanced Practice Midwife
DX: O09.293 Supervision of pregnancy with other poor reproductive or obstetric history, third trimester (principal); O34.211 Maternal care for low transverse scar from previous cesarean delivery; O09.893 Supervision of other high risk pregnancies, third trimester; O24.410 Gestational diabetes mellitus in pregnancy, diet controlled; Z3A.30 30 weeks gestation of pregnancy
CPT/HCPCS: 99214; G0463

== ENCOUNTER 2025-03-30 11:24 | Outpatient (AMB) | payer MEDICAID, SELFPAY ==
[2025-03-30 11:29] VITALS: BP 93/61; PULSE 94; RESP 18; TEMP 36.4; O2SAT 97; BMI 25.0
--- NOTE | 2025-03-30 11:29 | OBCLNT_ITS ---
Vital Signs 03/30/25 11:29 Height 1.57 m Height Method Stated Weight 61.859 kg Weight Measurement Method Standing Scale BMI 25.0 BP 93/61 Blood Pressure Source Automatic Cuff Blood Pressure Location Right Upper Arm Position Sitting Respiration 18 Pulse 94 Pulse Source Monitor Temp 97.6 F Temp Source Temporal Artery Scan Pulse Oximetry (%) 97 Oxygen Delivery Method Room Air Allergies/Home Meds Allergies & Medications Allergies No Known Allergies Allergy (Verified 05/11/25 05:36) Medication Reconciliation vits no.130-ferrous fum 27 mg iron-folic acid 800 mcg tablet ( Vitamin) 1 tab PO QDAY pregancy #60 tabs 12/28/24 [Rx Confirmed 05/04/25] blood sugar diagnostic (Blood Glucose Test strips) #50 ea 03/05/25 [Rx Confirmed 05/04/25] blood-glucose meter #1 ea 03/05/25 [Rx Confirmed 05/04/25] lancets #100 ea 03/05/25 [Rx Confirmed 05/04/25] docusate sodium 100 mg capsule (Stool Softener) 100 mg PO QDAY 30 days #30 caps 05/12/25 [Rx] ibuprofen 600 mg tablet 600 mg PO Q6H PRN fever or pain 10 days #40 tabs 05/12/25 [Rx] Intake Visit Data Collection New Patient or Established: Established Patient (seen at [facility] within 3 years) Reason for Visit:: OBC Seen by Clinical Staff ONLY (RN/MA): No Powerhouse Mechanic Helper Required: Yes Powerhouse Mechanic Helper's name/title: RYAN STEPHENSON MA Do You Feel Safe at Home: Yes Authorities Contacted: N/A PCP or OBGYN visit in last 3 months: Yes Date of Last PCP or OBGYN visit: 03/27/25 Hx Now: Yes Are you currently on any form of Control: No Pain Present Currently: No Pain Scale Used: Cunningham-Boyd/Numerical Pain scale:: 0 Smoking Status Smoking Status: Never smoker Immunizations Flu Vaccine in the Last 12 Months: No Flu Vaccine Exclusion Criteria: No Exclusion Criteria Questionnaires Covid-19 Vaccine Questionnaire Has patient been vacinated for Covid-19 Have you been vacinated for Covid-19: No PHQ-9 PHQ-2 Over the last 2 weeks, how often have you been bothered by any of the following problems? 1. Little interest or pleasure in doing things: not at all 2. Feeling down, depressed, or hopeless: not at all Total score: 0 PHQ-9 3. Trouble falling or staying asleep, or sleeping too much: Not at all 4. Feeling tired or having little energy: Not at all 5. Poor appetite or overeating: Not at all 6. Feeling bad about yourself - or that you are a failure or have let yourself or your family down: Not at all 7. Trouble concentrating on things, such as reading the newspaper or watching television: Not at all 8. Moving or speaking so slowly that other people could have noticed? - Or the opposite - being so fidgety or restless that you have been moving around a lot more than usual: not at all 9. Thoughts that you would be better off or of hurting yourself in some way: Not at all Total score: 0 If you checked off any problems, how difficult have these problems made it for you to do your work, take care of things at home, or get along with other people?: not difficult at all Source: Developed by Drs. Saeed Alvarez, Maye Winter, Mitchel Owen and colleagues, with an educational karla from [employer]. 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 No SAB complaints. feels tired. For repeat c/s. OB panel today. schedule OB sono for viability. discuss SAB precaution. discuss diet and rest. continue PNV. RTC 4 week OB check 10/23/24 -?-?-?-?-?-?-?-?-?-?-?-?- 10w 3d 51.88 kg 101/68 absent unknown 10 135 absent doing well. denies sab complaints, increase nausea and vomiting. NIPT and carrier screen today, labs pending, schedule MFM sono. comfort measure for nausea. diclegesis, review sab precaution, rtc 4 week 11/29/24 -?-?-?-?-?-?-?-?-?-?--?-?- 15w 5d 54.601 kg 98/62 absent unknown 16 145 active no OB complaints. c/s x2. fetus active, no sab complaints AFP today. MFM on 12/18. discuss comfort measure for 2nd tri, discuss sab precaution. rtc 4 week 12/28/24 -?-?-?-?-?-?-?-?-?-?-?-?- 19w 6d 56.472 kg 99/65 absent unknown 19 145 active No OB complaints today. Denies leaking, denies bleeding, denies contractions. Patient is a previous section x 2 aFP today. Ruth ent will be referred to OB at 28 weeks because of repeat . Discussed labor precautions. Return in 4 weeks OB check 01/25/25 -?-?-?-?-?-?-?-?-?-?-?-?- 23w 6d 58.57 kg 100/63 absent unknown 23 145 active Previous x 2. No OB complaints. Denies leaking, bleeding, contractions patient is compliant with her vitamins Sche dule with OB for medical management because of previous x 2. Third trimester labs today. Discussed labor precautions. Continue prenatals. Increase fluids 02/27/25 -?-?-?-?-?-?-?-?-?-?-?-?- 28w 4d 61.745 kg 106/65 absent unknown 29 160 active - has been uneventful so far. - Patient's estimated due date is 2024. - scheduled for 05/11/2025 (39 weeks). - No current contractions reported. - One-hour glucose screening test was hi gh, requiring a 3-hour glucose tolerance test for diagnosis. - Schedule 3-hour glucose tolerance test (patient to fast for at least 8 hours and drink enough water before the test) - Provide order for 3-hour glucose dirk ance test - scheduled for May 11 - Follow up appointment in 2 weeks - Patient to make [facility] appointment fo r glucose test 03/13/25 -?-?-?-?-?-?-?-?-?-?-?-?- 30w 4d 61.915 kg 106/68 absent unknown 30 154 active Patient reports good movement. Denies signs symptoms of labor. Denies leaking, bleeding, contractions. No OB complaints today Schedule with OB in 2 weeks. I discussed 3-hour GTT results. Ordered glucometer, lancets, test strips to pharmacy. I reviewed GDM diet with. And I also discussed patient testing 4 times a day. Patient to walk for 40 minutes a day. Schedule weekly NST BPP beginning at 32 weeks. 03/30/25 -?-?-?-?-?-?-?-?-?-?-?-?- 33w 0d 61.859 kg 93/61 absent unknown 34 160 active - She reports managing gestational diabetes through dietary modifications. - Blood sugar numbers are generally go od with occasional highs - She is controlling her diet and rece ived education on food choices - She declined metformin when offered as an alternative to strict dietary management - Patient reports movement and not es the baby woke up during the visit. - She denies any questions or concerns at this visit. - Continue current dietary management for blood sugar control with stricter portion control - Optional 20-minute evening walks to he with sugar control - Follow up in 2 weeks - Repeat scheduled for Kenji espinoza 04/25/25 -?-?-?-?-?-?-?-?-?-?-?-?- 36w 5d 64.013 kg 112/76 absent unknown 37 155 active - Ana Yousif is a patient with a scheduled on May 11 here for routine follow-up. - She reports that the baby is sometimes active, which she notes is normal. - She denies any contractions at this ti me. - Her blood sugar levels have been good based on home monitoring. - She is attending visits once per week. - scheduled for May 11 - Provider will give instructions for th e day of at next visit - Continue twice weekly monitoring visit s - Follow up next week - Culture to be performed 05/04/25 -?-?-?-?-?--?-?-?-?-?-?-?- 38w 0d 63.73 kg 108/76 - Ana Yousif is here for her final appointment prior to scheduled section on May 11. - She reports back pain but denies contr actions. - Patient notes that baby is active. - She experiences swelling, which was ac knowledged as normal at this stage of . - Scheduled cesa rean section on May 11 at 7:30 AM, check-in at 5:30 AM - NPO (nothing by mouth) after 10:00 PM the night before surgery, including no water - Use existing scar for incision approac h - Follow-up at [facility] for surgery SANDY Calculator Estimated Delivery Date Method Current WG Current Estimate 05/18/25 Ultrasound #1 39w 6d Other Estimates 04/28/25 LMP (Certain) 42w 5d 05/18/25 Ultrasound #2 39w 6d 05/18/25 Manual 39w 6d final sandy: 04/28 Notes Visit Date: 03/13/25 Last Updated by: Simona Spencer CNM 03/06: 3 hr gtt elevated: fastin, 1 hr and 4 hr elevated Visit Date: 01/25/25 Last Updated by: Simona Spencer CNM OB panel: O+,abs-, rpr;;nr, rub imm, hbsag-,hiv-,GC/CT-, HC-, NIPT/carrier screen- Visit Date: 12/28/24 Last Updated by: Simona Spencer CNM 29 yo . Previous c/sx2. No dates. sono 09/29/24: IUP 7w. EDC : 05/18/25 Visit Date: 11/29/24 Last Updated by: Simona Spencer CNM OB panel: O+,abs-,rpr;;nr, rub imm, hbsag-, hiv-, HC-, GC/CT-, NIPT:neg/boy, CF/SMA- Visit Date: 10/23/24 Last Updated by: Simona Spencer CNM 29 yo sono 09/29/24: 7 week: 05/18/25. Prev c/s x1. wrong dates Office Procedures OBC Clinic LOC & Office Proc's Nursing/Assessment Patient Status: Established Patient OB Clinic Nursing Assessment: Medication Reconciliation, Update PMH in EMR and Vital Signs OB Clinic Coordination of Care: Complex Care and Chronic Disease 1-5, Education Complex Pt/Fam, Consent,records obtained, informed consent, Results/Orders obtained and Staff clarify orders Special Needs: Heart tones Established Patient Charge Established Patient Point Assignment: 125 Established Patient Point Charge: EP Level 4 (120-155) Assessment & Plan Diagnosis / Problem List (1) Encounter for supervision of high risk in third trimester, antepartum: Status: Acute (2) Maternal care for low transverse scar from previous delivery: Status: Acute Plan Problem List - Gestational diabetes mellitus - History of delivery Assessment 33-week patient with gestational diabetes mellitus showing occasional elevated glucose levels but overall acceptable glycemic control through dietary management. Patient has history of previous sections with repeat section scheduled. heart rate is normal at 160 bpm with reported movement. Patient declined metformin therapy and prefers to continue dietary management. Plan - Continue current dietary management for blood sugar control with stricter portion control - Optional 20-minute evening walks to help with sugar control - Follow up in 2 weeks - Repeat scheduled for May 11 1. Progress Reviewed gestational age at 33 weeks, heart rate of 160 bpm (normal), and movements reported as active. Planned frequent visits (scheduled return in 2 weeks). 2. Instructed patient to monitor movements and report decreases immediately. 3. Testing Counseled on routine third-trimester labs per guidelines. Discussed potential need for ultrasound or monitoring based on risk factors. 4. Preeclampsia Precaution Educated on preeclampsia signs: severe headache, vision changes, right upper quadrant pain, sudden swelling. Advised urgent reporting of symptoms and discussed blood pressure monitoring if high risk. 5. Labor Precautions Reviewed labor signs: regular contractions, pelvic pressure, back pain, bleeding, or fluid leakage. Instructed to seek immediate care for these symptoms. 6. Lifestyle and Delivery Preparation Reinforced dietary control for glucose management and recommended 20-minute evening walks to help with sugar control. Discussed scheduled repeat on the . Offered metformin as alternative to strict dietary control but patient declined medication. Discussed plan, pain management, and . Advised on labor preparation (e.g., hospital bag) and expectations. 7. Psychosocial Support Assessed emotional well-being and offered resources for mental health or parenting support.
== END 2025-03-30 11:43 | disposition home or self-care (01) ==
LOC: HODSOBC 11:24
PROVIDERS: Supervising Provider Obstetrics & Gynecology; Visit Provider Obstetrics & Gynecology
DX: O09.293 Supervision of pregnancy with other poor reproductive or obstetric history, third trimester (principal); O34.211 Maternal care for low transverse scar from previous cesarean delivery; O09.893 Supervision of other high risk pregnancies, third trimester; O24.410 Gestational diabetes mellitus in pregnancy, diet controlled; Z3A.33 33 weeks gestation of pregnancy
CPT/HCPCS: 99214; G0463

== ENCOUNTER → 2025-04-12 15:24 | Outpatient (AMB) | payer MEDICAID, SELFPAY ==
--- NOTE | 2025-04-12 15:53 | OBCLNT_ITS ---
Vital Signs 04/12/25 15:54 Height 1.57 m Height Method Stated Weight 63.049 kg Weight Measurement Method Standing Scale BMI 25.5 BP 100/64 Blood Pressure Source Automatic Cuff Blood Pressure Location Right Upper Arm Position Sitting Respiration 18 Pulse 83 Pulse Source Monitor Temp 97.7 F Temp Source Temporal Artery Scan Pulse Oximetry (%) 97 Oxygen Delivery Method Room Air Allergies/Home Meds Allergies & Medications Allergies No Known Allergies Allergy (Verified 05/11/25 05:36) Medication Reconciliation vits no.130-ferrous fum 27 mg iron-folic acid 800 mcg tablet ( Vitamin) 1 tab PO QDAY pregancy #60 tabs 12/28/24 [Rx Confirmed 05/04/25] blood sugar diagnostic (Blood Glucose Test strips) #50 ea 03/05/25 [Rx Confirmed 05/04/25] blood-glucose meter #1 ea 03/05/25 [Rx Confirmed 05/04/25] lancets #100 ea 03/05/25 [Rx Confirmed 05/04/25] docusate sodium 100 mg capsule (Stool Softener) 100 mg PO QDAY 30 days #30 caps 05/12/25 [Rx] ibuprofen 600 mg tablet 600 mg PO Q6H PRN fever or pain 10 days #40 tabs 05/12/25 [Rx] Immunizations Immunizations Flu Vaccine in the Last 12 Months: No Flu Vaccine Exclusion Criteria: Refused by Patient Care OB Visit Log OB Flowsheet Initial Weight: Not Recorded Date -?-?-?-?-?-?-?-?-?-?-?-?- EGA Weight BP Alb Glu CTX Pres Fundal ht FHR Mov Dilation Station Effacement Hx Notes Visit Note 09/21/24 -?-?-?-?-?-?-?-?-?-?-?-?- 5w 6d 50.405 kg 101/63 absent 8.0 29 yo for OBI. No SAB complaints. feels tired. For repeat c/s. OB panel today. schedule OB sono for viability. discuss SAB precaution. discuss diet and rest. continue PNV. RTC 4 week OB check 10/23/24 -?-?-?-?-?-?-?-?-?-?-?-?- 10w 3d 51.88 kg 101/68 absent unknown 10 135 absent doing well. denies sab complaints, increase nausea and vomiting. NIPT and carrier screen today, labs pending, schedule MFM sono. comfort measure for nausea. mariela, review sab precaution, rtc 4 week 11/29/24 -?-?-?-?-?-?-?-?-?-?-?-?- 15w 5d 54.601 kg 98/62 absent unknown 16 145 active no OB complaints. c/s x2. fetus active, no sab complaints AFP today. MFM on 12/18. discuss comfort measure for 2nd tri, discuss sab precaution. rtc 4 week 12/28/24 -?-?-?-?-?-?-?-?-?-?-?-?- 19w 6d 56.472 kg 99/65 absent unknown 19 145 active No OB complaints today. Denies leaking, denies bleeding, denies contractions. Patient is a previous section x 2 aFP today. Ruth ent will be referred to OB at 28 weeks because of repeat . Discussed labor precautions. Return in 4 weeks OB check 01/25/25 -?-?-?-?-?-?-?-?-?-?-?-?- 23w 6d 58.57 kg 100/63 absent unknown 23 145 active Previous x 2. No OB complaints. Denies leaking, bleeding, contractions patient is compliant with her vitamins Sche dule with OB for medical management because of previous x 2. Third trimester labs today. Discussed labor precautions. Continue prenatals. Increase fluids 02/27/25 -?-?-?-?-?-?-?-?-?-?-?-?- 28w 4d 61.745 kg 106/65 absent unknown 29 160 active - has been uneventful so far. - Patient's estimated due date is 2024. - scheduled for 05/11/2025 (39 weeks). - No current contractions reported. - One-hour glucose screening test was hi gh, requiring a 3-hour glucose tolerance test for diagnosis. - Schedule 3-hour glucose tolerance test (patient to fast for at least 8 hours and drink enough water before the test) - Provide order for 3-hour glucose dirk ance test - scheduled for May 11 025 - Follow up appointment in 2 weeks - Patient to make [facility] appointment fo r glucose test 03/13/25 -?-?-?-?-?-?-?-?-?-?-?-?- 30w 4d 61.915 kg 106/68 absent unknown 30 154 active Patient reports good movement. Denies signs symptoms of labor. Denies leaking, bleeding, contractions. No OB complaints today Schedule with OB in 2 weeks. I discussed 3-hour GTT results. Ordered glucometer, lancets, test strips to pharmacy. I reviewed GDM diet with. And I also discussed patient testing 4 times a day. Patient to walk for 40 minutes a day. Schedule weekly NST BPP beginning at 32 weeks. 03/30/25 -?-?--?-?-?-?-?-?-?-?-?-?- 33w 0d 61.859 kg 93/61 absent unknown 34 160 active - She reports managing gestational diabetes through dietary modifications. - Blood sugar numbers are generally go od with occasional highs - She is controlling her diet and rece ived education on food choices - She declined metformin when offered as an alternative to strict dietary management - Patient reports movement and not es the baby woke up during the visit. - She denies any questions or concerns at this visit. - Continue current dietary management for blood sugar control with stricter portion control - Optional 20-minute evening walks to he with sugar control - Follow up in 2 weeks - Repeat scheduled for Kenji espinoza 04/12/25 -?-?-?-?-?-?-?-?-?-?-?-?- 34w 6d 63.049 kg 100/64 absent unknown 36 145 active - She reports having intermittent contractions. - Patient has been monitoring glucose le vels with fasting values ranging from 95 to 100 and postprandial readings mostly between 130 to 145. - She received detailed consultation reg arding risk of scar rupture and emergenc y precautions for when to seek hospital evaluation. - Patient counseled in detail about risk of scar rupture and ER precautions including when to come to hospital for evaluation - Glucose logs reviewed showing fasting levels 95-100 and postprandial levels mostly 130-145 04/25/25 -?-?-?-?-?-?-?-?-?-?-?-?- 36w 5d 64.013 kg 112/76 absent unknown 37 155 active - Ana Yousif is a patient with a scheduled on May 11 here for routine follow-up. - She reports that the baby is sometimes active, which she notes is normal. - She denies any contractions at this ti me. - Her blood sugar levels have been good based on home monitoring. - She is attending visits once per week. - scheduled for May 11 - Provider will give instructions for e day of at next visit - Continue twice weekly monitoring visit s - Follow up next week - Culture to be performed 05/04/25 -?-?-?-?-?-?-?-?-?-?-?-?- 38w 0d 63.73 kg 108/76 - Ana Yousif is here for her final appointment prior to scheduled section on May 11. - She reports back pain but denies contr actions. - Patient notes that baby is active. - She experiences swelling, which was ac knowledged as normal at this stage of p regnancy. - Scheduled cesa rean section on May 11 at 7:30 AM, check-in at 5:30 AM - NPO (nothing by mouth) after 10:00 PM the night before surgery, including no water - Use existing scar for incision approac h - Follow-up at hospital for surgery SANDY Calculator Estimated Delivery Date Method Current WG Current Estimate 05/18/25 Ultrasound #1 39w 6d Other Estimates 04/28/25 LMP (Certain) 42w 5d 05/18/25 Ultrasound #2 39w 6d 05/18/25 Manual 39w 6d final sandy: 04/28 Notes Visit Date: 03/13/25 Last Updated by: Simona Spencer CNM 03/06: 3 hr gtt elevated: fastin, 1 hr and 4 hr elevated Visit Date: 01/25/25 Last Updated by: Simona Spencer CNM OB panel: O+,abs-, rpr;;nr, rub imm, hbsag-,hiv-,GC/CT-, HC-, NIPT/carrier screen- Visit Date: 12/28/24 Last Updated by: Simona Spencer CNM 29 yo . Previous c/sx2. No dates. sono 09/29/24: IUP 7w. EDC : 05/18/25 Visit Date: 11/29/24 Last Updated by: Simona Spencer CNM OB panel: O+,abs-,rpr;;nr, rub imm, hbsag-, hiv-, HC-, GC/CT-, NIPT:neg/ boy, CF/SMA- Visit Date: 10/23/24 Last Updated by: Simona Spencer CNM 29 yo sono 09/29/24: 7 week: 05/18/25. Prev c/s x1. wrong dates Office Procedures [facility] Clinic LOC & Office Proc's Nursing/Assessment Patient Status: Established Patient OB Clinic Nursing Assessment: Medication Reconciliation, Update PMH in EMR and Vital Signs OB Clinic Coordination of Care: Complex Care and Chronic Disease 1-5, Education Complex Pt/Fam, Consent,records obtained, informed consent, Lab and Imaging orders, Results/Orders obtained and Staff clarify orders Special Needs: Heart tones Established Patient Charge Established Patient Point Assignment: 140 Established Patient Point Charge: EP Level 4 (120-155) Assessment & Plan Diagnosis / Problem List (1) Encounter for supervision of high risk in third trimester, antepartum: Status: Acute (2) Diet controlled gestational diabetes mellitus (GDM) in third trimester: Status: Acute (3) Maternal care for low transverse scar from previous delivery: Status: Acute Plan Problem List - Gestational diabetes mellitus - Uterine contractions - Previous delivery Assessment Patient presents with gestational diabetes with glucose logs showing fasting values of 95-100 mg/dL and postprandial values mostly between 130-145 mg/dL. She reports intermittent contractions in the setting of previous section with associated risk of uterine scar rupture. Plan - Patient counseled in detail about risk of scar rupture and ER precautions including when to come to hospital for evaluation - Glucose logs reviewed showing fasting levels 95-100 and postprandial levels mostly 130-145 (If not initial visit and GA >20 weeks): 1. Progress Reviewed gestational age, growth, and heart rate. Planned frequent visits (every 2 weeks until 36 weeks, then weekly). 2. Instructed patient to monitor movements and report decreases immediately. 3. Testing Counseled on routine third-trimester labs per guidelines. Discussed potential need for ultrasound or monitoring based on risk factors. 4. Preeclampsia Precaution Educated on preeclampsia signs: severe headache, vision changes, right upper quadrant pain, sudden swelling. Advised urgent reporting of symptoms and discussed blood pressure monitoring if high risk. 5. Labor Precautions Reviewed labor signs: regular contractions, pelvic pressure, back pain, bleeding, or fluid leakage. Instructed to seek immediate care for these symptoms. 6. Lifestyle and Delivery Preparation Reinforced vitamins, nutrition, and safe activity. Discussed plan, pain management, and . Advised on labor preparation (e.g., hospital bag) and expectations. 7. Psychosocial Support Assessed emotional well-being and offered resources for mental health or parenting support.
[2025-04-12 15:54] VITALS: BP 100/64; PULSE 83; RESP 18; TEMP 36.5; O2SAT 97; BMI 25.5
== END ==
LOC: HODSOBC 15:24
PROVIDERS: Supervising Provider Obstetrics & Gynecology; Visit Provider Obstetrics & Gynecology
DX: O09.893 Supervision of other high risk pregnancies, third trimester (principal); O24.410 Gestational diabetes mellitus in pregnancy, diet controlled; O47.03 False labor before 37 completed weeks of gestation, third trimester; O09.293 Supervision of pregnancy with other poor reproductive or obstetric history, third trimester; O34.211 Maternal care for low transverse scar from previous cesarean delivery; Z3A.34 34 weeks gestation of pregnancy; Z28.21 Immunization not carried out because of patient refusal
CPT/HCPCS: 99214; G0463

== ENCOUNTER 2025-04-25 08:58 | Outpatient (AMB) | payer MEDICAID, SELFPAY ==
[2025-04-25 09:08] VITALS: BP 112/76; PULSE 100; RESP 18; TEMP 36.6; O2SAT 98; BMI 25.9
--- NOTE | 2025-04-25 09:08 | OBCLNT_ITS ---
Vital Signs 04/25/25 09:08 Height 1.57 m Height Method Stated Weight 64.013 kg Weight Measurement Method Standing Scale BMI 25.9 BP 112/76 Blood Pressure Source Automatic Cuff Blood Pressure Location Left Upper Arm Position Sitting Respiration 18 Pulse 100 Pulse Source Monitor Temp 97.8 F Temp Source Oral Pulse Oximetry (%) 98 Oxygen Delivery Method Room Air Allergies/Home Meds Allergies & Medications Allergies No Known Allergies Allergy (Verified 04/25/25 09:09) Medication Reconciliation vits no.130-ferrous fum 27 mg iron-folic acid 800 mcg tablet ( Vitamin) 1 tab PO QDAY pregancy #60 tabs 12/28/24 [Rx Confirmed 04/25/25] blood sugar diagnostic (Blood Glucose Test strips) #50 ea 03/05/25 [Rx Confirmed 04/25/25] blood-glucose meter #1 ea 03/05/25 [Rx Confirmed 04/25/25] lancets #100 ea 03/05/25 [Rx Confirmed 04/25/25] Immunizations Immunizations Flu Vaccine in the Last 12 Months: No Flu Vaccine Exclusion Criteria: No Exclusion Criteria Care OB Visit Log OB Flowsheet Initial Weight: Not Recorded Date -?-?-?-?-?-?-?-?-?-?-?-?- EGA Weight BP Alb Glu CTX Pres Fundal ht FHR Mov Dilation Station Effacement Hx Notes Visit Note 09/21/24 -?-?-?-?-?-?-?-?-?-?-?-?- 5w 6d 50.405 kg 101/63 absent 8.0 29 yo for OBI. No SAB complaints. feels tired. For repeat c/s. OB panel today. schedule OB sono for viability. discuss SAB precaution. discuss diet and rest. continue PNV. RTC 4 week OB check 10/23/24 -?-?-?-?-?-?-?-?-?-?-?-?- 10w 3d 51.88 kg 101/68 absent unknown 10 135 absent doing well. denies sab complaints, increase nausea and vomiting. NIPT and carrier screen today, labs pending, schedule MFM sono. comfort measure for nausea. diclegesis, review sab precaution, rtc 4 week 11/29/24 -?-?-?-?-?-?-?-?-?-?-?-?- 15w 5d 54.601 kg 98/62 absent unknown 16 145 active no OB complaints. c/s x2. fetus active, no sab complaints AFP today. MFM on 12/18. discuss comfort measure for 2nd tri, discuss sab precaution. rtc 4 week 12/28/24 -?-?-?-?-?-?-?-?-?-?-?-?- 19w 6d 56.472 kg 99/65 absent unknown 19 145 active No OB complaints today. Denies leaking, denies bleeding, denies contractions. Patient is a previous section x 2 aFP today. Ruth ent will be referred to OB at 28 weeks because of repeat . Discussed labor precautions. Return in 4 weeks OB check 01/25/25 -?-?-?-?-?-?-?-?-?-?-?-?- 23w 6d 58.57 kg 100/63 absent unknown 23 145 active Previous x 2. No OB complaints. Denies leaking, bleeding, contractions patient is compliant with her vitamins Sched ule with OB for medical management because of previous x 2. Third trimester labs today. Discussed labor precautions. Continue prenatals. Increase fluids 02/27/25 -?-?-?-?-?-?-?-?-?-?-?-?- 28w 4d 61.745 kg 106/65 absent unknown 29 160 active - has been uneventful so far. - Patient's estimated due date is 2024. - scheduled for 05/11/2025 (39 weeks). - No current contractions reported. - One-hour glucose screening test was hi gh, requiring a 3-hour glucose tolerance test for diagnosis. - Schedule 3 -hour glucose tolerance test (patient to fast for at least 8 hours and drink enough water before the test) - Provide order for 3-hour glucose dirk ance test - scheduled for May 11 025 - Follow up appointment in 2 weeks - Patient to make [facility] appointment fo r glucose test 03/13/25 -?-?-?-?-?-?-?-?-?-?-?-?- 30w 4d 61.915 kg 106/68 absent unknown 30 154 active Patient reports good movement. Denies signs symptoms of labor. Denies leaking, bleeding, contractions. No OB complaints today Schedule with OB in 2 weeks. I discussed 3-hour GTT results. Ordered glucometer, lancets, test strips to nilsa whelan. I reviewed GDM diet with. And I also discussed patient testing 4 times a day. Patient to walk for 40 minutes a day. Schedule weekly NST BPP beginning at 32 weeks. 04/25/25 -?-?-?-?-?-?-?-?-?-?-?-?- 36w 5d 64.013 kg 112/76 absent unknown 37 155 active - Ana Yousif is a patient with a scheduled on May 11 here for routine follow-up. - She reports that the baby is sometimes active, which she notes is normal. - She denies any contractions at this ti me. - Her blood sugar levels have been good based on home monitoring. - She is attending visits once per week. - scheduled for May 11 - Provider will give instructions for e day of at next visit - Continue twice weekly monitoring visit s - Follow up next week - Culture to be performed MARNIE Calculator Estimated Delivery Date Method Current WG Current Estimate 05/18/25 Ultrasound #1 36w 5d Other Estimates 04/28/25 LMP (Certain) 39w 4d 05/18/25 Ultrasound #2 36w 5d 05/18/25 Manual 36w 5d final marnie: 04/28 Notes Visit Date: 03/13/25 Last Updated by: Simona Spencer CNM 03/06: 3 hr gtt elevated: fastin, 1 hr and 4 hr elevated Visit Date: 01/25/25 Last Updated by: Simona Spencer CNM OB panel: O+,abs-, rpr;;nr, rub imm, hbsag-,hiv-,GC/CT-, HC-, NIPT/carrier screen- Visit Date: 12/28/24 Last Updated by: Simona Spencer CNM 29 yo . Previous c/sx2. No dates. sono 09/29/24: IUP 7w. EDC : 05/18/25 Visit Date: 11/29/24 Last Updated by: Simona Spencer CNM OB panel: O+,abs-,rpr;;nr, rub imm, hbsag-, hiv-, HC-, GC/CT-, NIPT:neg/boy, CF/SMA- Visit Date: 10/23/24 Last Updated by: Simona Spencer CNM 29 yo sono 09/29/24: 7 week: 05/18/25. Prev c/s x1. wrong dates Office Procedures OBC Clinic LOC & Office Proc's Nursing/Assessment Patient Status: Established Patient OB Clinic Nursing Assessment: Medication Reconciliation, Update PMH in EMR and Vital Signs OB Clinic Coordination of Care: Consent,records obtained, informed consent, Education Simp Pt/Fam, Lab and Imaging orders, Results/Orders obtained and Staff clarify orders Special Needs: Heart tones Miscellaneous Interventions: Pelvic Culture Established Patient Charge Established Patient Point Assignment: 120 Established Patient Point Charge: EP Level 4 (120-155) Assessment & Plan Diagnosis / Problem List (1) Encounter for supervision of high risk in third trimester, antepartum: Status: Acute (2) Diet controlled gestational diabetes mellitus (GDM) in third trimester: Status: Acute (3) Maternal care for low transverse scar from previous delivery: Status: Acute Plan Assessment Patient is scheduled for section on May 11. heart rate is 155 bpm, which is within normal limits. Patient reports baby is active with nor mal movement patterns. Blood glucose levels are reported as pretty good. Patient is attending visits twice weekly. Patient experienced some contractions but was advised these can be normal unless very painful or persistent. Plan - scheduled for May 11 - Provider will give instructions for the day of at next visit - Continue twice weekly monitoring visits - Follow up next week - Culture to be performed 1. Progress Reviewed gestational age, growth, and heart rate. Planned frequent visits (every 2 weeks until 36 weeks, then weekly). 2. Instructed patient to monitor movements and report decreases immediately. 3. Testing Counseled on routine third-trimester labs per guidelines. Discussed potential need for ultrasound or monitoring based on risk factors. 4. Preeclampsia Precaution Educated on preeclampsia signs: severe headache, vision changes, right upper quadrant pain, sudden swelling. Advised urgent reporting of symptoms and discussed blood pressure monitoring if high risk. 5. Labor Precautions Reviewed labor signs: regular contractions, pelvic pressure, back pain, bleeding, or fluid leakage. Instructed to seek immediate care for these symptoms. 6. Lifestyle and Delivery Preparation Reinforced vitamins, nutrition, and safe activity. Discussed plan, pain management, and . Advised on labor preparation (e.g., hospital bag) and expectations. 7. Psychosocial Support Assessed emotional well-being and offered resources for mental health or parenting support.
== END 2025-04-25 09:28 | disposition home or self-care (01) ==
LOC: HODSOBC 08:58
PROVIDERS: Supervising Provider Obstetrics & Gynecology; Visit Provider Obstetrics & Gynecology
DX: O09.893 Supervision of other high risk pregnancies, third trimester (principal); O24.410 Gestational diabetes mellitus in pregnancy, diet controlled; O09.293 Supervision of pregnancy with other poor reproductive or obstetric history, third trimester; O34.211 Maternal care for low transverse scar from previous cesarean delivery; Z3A.36 36 weeks gestation of pregnancy
CPT/HCPCS: 99214; G0463

== ENCOUNTER 2025-05-04 11:20 | Outpatient (AMB) | payer MEDICAID, SELFPAY ==
[2025-05-04 11:30] VITALS: BP 108/76; PULSE 98; RESP 18; TEMP 36.7; O2SAT 96; BMI 25.8
--- NOTE | 2025-05-04 11:30 | OBCLNT_ITS ---
Vital Signs 05/04/25 11:30 Height 1.57 m Height Method Stated Weight 63.73 kg Weight Measurement Method Standing Scale BMI 25.8 BP 108/76 Blood Pressure Source Automatic Cuff Blood Pressure Location Left Upper Arm Position Sitting Respiration 18 Pulse 98 Pulse Source Monitor Temp 98.1 F Temp Source Oral Pulse Oximetry (%) 96 Oxygen Delivery Method Room Air Allergies/Home Meds Allergies & Medications Allergies No Known Allergies Allergy (Verified 05/04/25 11:47) Medication Reconciliation vits no.130-ferrous fum 27 mg iron-folic acid 800 mcg tablet ( Vitamin) 1 tab PO QDAY pregancy #60 tabs 12/28/24 [Rx Confirmed 05/04/25] blood sugar diagnostic (Blood Glucose Test strips) #50 ea 03/05/25 [Rx Confirmed 05/04/25] blood-glucose meter #1 ea 03/05/25 [Rx Confirmed 05/04/25] lancets #100 ea 03/05/25 [Rx Confirmed 05/04/25] Immunizations Immunizations Flu Vaccine in the Last 12 Months: Yes Flu Vaccine Exclusion Criteria: Already Received Care OB Visit Log OB Flowsheet Initial Weight: Not Recorded Date -?-?-?-?-?-?-?-?-?-?-?-?- EGA Weight BP Alb Glu CTX Pres Fundal ht FHR Mov Dilation Station Effacement Hx Notes Visit Note 09/21/24 -?-?-?-?-?-?-?-?-?-?-?-?- 5w 6d 50.405 kg 101/63 absent 8.0 29 yo for OBI. No SAB complaints. feels tired. For repeat c/s. OB panel today. schedule OB sono for viability. discuss SAB precaution. discuss diet and rest. continue PNV. RTC 4 week OB check 10/23/24 -?-?-?-?-?-?-?-?-?-?-?-?- 10w 3d 51.88 kg 101/68 absent unknown 10 135 absent doing well. denies sab complaints, increase nausea and vomiting. NIPT and carrier screen today, labs pending, schedule MFM sono. comfort measure for nausea. diclegesis, review sab precaution, rtc 4 week 11/29/24 -?-?-?-?-?-?-?-?-?-?-?-?- 15w 5d 54.601 kg 98/62 absent unknown 16 145 active no OB complaints. c/s x2. fetus active, no sab complaints AFP today. MFM on 12/18. discuss comfort measure for 2nd tri, discuss sab precaution. rtc 4 week 12/28/24 -?-?-?-?-?-?-?-?-?-?-?-?- 19w 6d 56.472 kg 99/65 absent unknown 19 145 active No OB complaints today. Denies leaking, denies bleeding, denies contractions. Patient is a previous section x 2 aFP today. Ruth ent will be referred to OB at 28 weeks because of repeat . Discussed labor precautions. Return in 4 weeks OB check 01/25/25 -?-?-?-?-?-?-?-?-?-?-?-?- 23w 6d 58.57 kg 100/63 absent unknown 23 145 active Previous x 2. No OB complaints. Denies leaking, bleeding, contractions patient is compliant with her vitamins Sched ule with OB for medical management because of previous x 2. Third trimester labs today. Discussed labor precautions. Continue prenatals. Increase fluids 02/27/25 -?-?-?-?-?-?-?-?-?-?-?-?- 28w 4d 61.745 kg 106/65 absent unknown 29 160 active - has been uneventful so far. - Patient's estimated due date is 2024. - scheduled for 05/11/2025 (39 weeks). - No current contractions reported. - One-hour glucose screening test was hi gh, requiring a 3-hour glucose tolerance test for diagnosis. - Schedule 3 -hour glucose tolerance test (patient to fast for at least 8 hours and drink enough water before the test) - Provide order for 3-hour glucose dirk ance test - scheduled for May 11 025 - Follow up appointment in 2 weeks - Patient to make [facility] appointment fo r glucose test 03/13/25 -?-?-?-?-?-?-?-?-?-?-?-?- 30w 4d 61.915 kg 106/68 absent unknown 30 154 active Patient reports good movement. Denies signs symptoms of labor. Denies leaking, bleeding, contractions. No OB complaints today Schedule with OB in 2 weeks. I discussed 3-hour GTT results. Ordered glucometer, lancets, test strips to pharmacy. I reviewed GDM diet with. And I also discussed patient testing 4 times a day. Patient to walk for 40 minutes a day. Schedule weekly NST BPP beginning at 32 weeks. 04/25/25 -?-?--?-?-?-?-?-?-?-?-?-?- 36w 5d 64.013 kg 112/76 absent unknown 37 155 active - Ana Yousif is a patient with a scheduled on May 11 here for routine follow-up. - She reports that the baby is sometimes active, which she notes is normal. - She denies any contractions at this ti me. - Her blood sugar levels have been good based on home monitoring. - She is attending visits once per week. - scheduled for May 11 - Provider will give instructions for e day of at next visit - Continue twice weekly monitoring visit s - Follow up next week - Culture to be performed 05/04/25 -?-?-?-?-?-?-?-?-?-?-?-?- 38w 0d 63.73 kg 108/76 - Ana Yousif is here for her final appointment prior to scheduled section on May 11. - She reports back pain but denies contr actions. - Patient notes that baby is active. - She experiences swelling, which was ac knowledged as normal at this stage of . - Scheduled cesa rean section on May 11 at 7:30 AM, check-in at 5:30 AM - NPO (nothing by mouth) after 10:00 PM the night before surgery, including no water - Use existing scar for incision approac h - Follow-up at hospital for surgery MARNIE Calculator Estimated Delivery Date Method Current WG Current Estimate 05/18/25 Ultrasound #1 38w 0d Other Estimates 04/28/25 LMP (Certain) 40w 6d 05/18/25 Ultrasound #2 38w 0d 05/18/25 Manual 38w 0d final marnie: 04/28 Notes Visit Date: 03/13/25 Last Updated by: Simona Spencer CNM 03/06: 3 hr gtt elevated: fastin, 1 hr and 4 hr elevated Visit Date: 01/25/25 Last Updated by: Simona Spencer CNM OB panel: O+,abs-, rpr;;nr, rub imm, hbsag-,hiv-,GC/CT-, HC-, NIPT/carrier screen- Visit Date: 12/28/24 Last Updated by: Simona Spencer CNM 29 yo . Previous c/sx2. No dates. sono 09/29/24: IUP 7w. EDC : 05/18/25 Visit Date: 11/29/24 Last Updated by: Simona Spencer CNM OB panel: O+,abs-,rpr;;nr, rub imm, hbsag-, hiv-, HC-, GC/CT-, NIPT:neg/boy, CF/SMA- Visit Date: 10/23/24 Last Updated by: Simona Sepncer CNM 29 yo sono 09/29/24: 7 week: 05/18/25. Prev c/s x1. wrong dates Office Procedures [facility] Clinic LOC & Office Proc's Nursing/Assessment Patient Status: Established Patient OB Clinic Nursing Assessment: Medication Reconciliation, Update PMH in EMR and Vital Signs OB Clinic Coordination of Care: Complex Care and Chronic Disease 1-5, Consent,records obtained, informed consent, Education Simp Pt/Fam, 1 Ins Authorization, Lab and Imaging orders, Results/Orders obtained and Staff clarify orders Special Needs: Heart tones Established Patient Charge Established Patient Point Assignment: 150 Established Patient Point Charge: EP Level 4 (120-155) Assessment & Plan Diagnosis / Problem List (1) Encounter for supervision of high risk in third trimester, antepartum: Status: Acute (2) Diet controlled gestational diabetes mellitus (GDM) in third trimester: Status: Acute (3) Maternal care for low transverse scar from previous delivery: Status: Acute Plan Problem List - Back pain - Swelling Assessment Patient is at term with scheduled section on May 11. heart rate is 159 bpm, which is within normal limits. Baby is active with no reported contractions. Patient reports back pain, which appears to be manageable. Patient has swelling, which is noted to be normal at this gestational stage. Patient has a previous scar and has chosen to use the existing scar for the upcoming procedure. Plan - Scheduled section on May 11 at 7:30 AM, check-in at 5:30 AM - NPO (nothing by mouth) after 10:00 PM the night before surgery, including no water - Use existing scar for incision approach - Follow-up at hospital for surgery 1. Progress Reviewed gestational age, growth, and heart rate (159 normal heartbeat). Planned frequent visits (every 2 weeks until 36 weeks, then weekly). 2. Instructed patient to monitor movements and report decreases immediately. 3. Testing Counseled on routine third-trimester labs per guidelines. Discussed potential need for ultrasound or monitoring based on risk factors. 4. Preeclampsia Precaution Educated on preeclampsia signs: severe headache, vision changes, right upper quadrant pain, sudden swelling. Advised urgent reporting of symptoms and discussed blood pressure monitoring if high risk. 5. Labor Precautions Reviewed labor signs: regular contractions, pelvic pressure, back pain, bleeding, or fluid leakage. Instructed to seek immediate care for these symptoms. 6. Lifestyle and Delivery Preparation Reinforced vitamins, nutrition, and safe activity. Discussed plan, pain management, and . Advised on labor preparation (e.g., hospital bag) and expectations. 7. Psychosocial Support Assessed emotional well-being and offered resources for mental health or parenting support.
== END 2025-05-04 11:58 | disposition home or self-care (01) ==
LOC: HODSOBC 11:20
PROVIDERS: Supervising Provider Obstetrics & Gynecology; Visit Provider Obstetrics & Gynecology
DX: O09.893 Supervision of other high risk pregnancies, third trimester (principal); O24.410 Gestational diabetes mellitus in pregnancy, diet controlled; O09.293 Supervision of pregnancy with other poor reproductive or obstetric history, third trimester; O34.211 Maternal care for low transverse scar from previous cesarean delivery; Z3A.38 38 weeks gestation of pregnancy
CPT/HCPCS: 99214; G0463

== ENCOUNTER 2025-05-08 09:55 | Outpatient (RCR) | payer MEDICAID, SELFPAY ==
--- NOTE | 2025-03-27 10:13 | XR_ITS ---
Examination: Biophysical profile, ultrasound Date and time of exam: 03/27/2025, 10:52 a.m. INDICATION: Routine BPP/NST due to GDM Technique: Multiple transabdominal sonographic images of the pelvis abdomen obtained. Attention is directed to the breathing movement, gross body movement, amniotic fluid volume and tone. Findings: Single live IUP in cephalic position. Total biophysical profile is 8 of 8. breathing movement is 2. Gross body movement is 2. tone is 2. Qualitative amniotic fluid volume is 2 JEFFERY = 13.5 cm. FHR = 147 bpm. Impression: Biophysical profile is 8 of 8.
[2025-03-27 11:18] VITALS: BP 99/55; PULSE 105; RESP 16; TEMP 36.7
--- NOTE | 2025-04-04 12:53 | XR_ITS ---
Examination: Biophysical profile, ultrasound Date and time of exam: April 04, 2025, 1254 hours INDICATIONS: Diagnosis gestational diabetes Technique: Multiple transabdominal sonographic images of the pelvis abdomen obtained. Attention is directed to the breathing movement, gross body movement, amniotic fluid volume and tone. Findings: Amniotic fluid index 17.1 cm Total biophysical profile is 8 of 8. breathing movement is 2. Gross body movement is 2. tone is 2. Qualitative amniotic fluid volume is 2 Impression: Biophysical profile is 8 of 8.
[2025-04-04 13:09] VITALS: BP 94/52; PULSE 96; RESP 16; TEMP 36.7
--- NOTE | 2025-04-10 10:16 | XR_ITS ---
Examination: Biophysical profile, ultrasound Date and time of exam: April 10 2025, 1029 hours INDICATIONS: Pelvic contractions this week, diagnosis gestational diabetes Technique: Multiple transabdominal sonographic images of the pelvis abdomen obtained. Attention is directed to the breathing movement, gross body movement, amniotic fluid volume and tone. Findings: Amniotic fluid index 12.9 cm Total biophysical profile is 8 of 8. breathing movement is 2. Gross body movement is 2. tone is 2. Qualitative amniotic fluid volume is 2 Impression: Biophysical profile is 8 of 8.
[2025-04-10 10:50] VITALS: BP 104/51; PULSE 98; RESP 16; TEMP 36.8
--- NOTE | 2025-04-17 10:17 | XR_ITS ---
Examination: Biophysical profile, ultrasound Date and time of exam: April 17, 2025, 1010 hours INDICATIONS: Diagnosis gestational diabetes Technique: Multiple transabdominal sonographic images of the pelvis abdomen obtained. Attention is directed to the breathing movement, gross body movement, amniotic fluid volume and tone. Findings: Amniotic fluid index 8.5 cm Total biophysical profile is 8 of 8. breathing movement is 2. Gross body movement is 2. tone is 2. Qualitative amniotic fluid volume is 2 Impression: Biophysical profile is 8 of 8.
[2025-04-17 10:54] VITALS: BP 101/65; PULSE 109; RESP 16; TEMP 36.7
--- NOTE | 2025-04-24 09:55 | XR_ITS ---
Examination: Biophysical profile, ultrasound Date and time of exam: April 24 2025, 0959 hours INDICATIONS: Diagnosis gestational diabetes, leaking amniotic fluid beginning 2 days ago Technique: Multiple transabdominal sonographic images of the pelvis abdomen obtained. Attention is directed to the breathing movement, gross body movement, amniotic fluid volume and tone. Findings: Amniotic fluid index 11.6 cm Total biophysical profile is 8 of 8. breathing movement is 2. Gross body movement is 2. tone is 2. Qualitative amniotic fluid volume is 2 Impression: Biophysical profile is 8 of 8.
[2025-04-24 10:18] VITALS: BP 92/57; PULSE 108; RESP 16; TEMP 36.3
--- NOTE | 2025-05-01 10:03 | XR_ITS ---
Examination: Biophysical profile, ultrasound Date and time of exam: May 01, 2025, 1022 hours INDICATIONS: Leaking amniotic fluid beginning 2 days ago Technique: Multiple transabdominal sonographic images of the pelvis abdomen obtained. Attention is directed to the breathing movement, gross body movement, amniotic fluid volume and tone. Findings: Amniotic fluid index 10.5 cm Total biophysical profile is 8 of 8. breathing movement is 2. Gross body movement is 2. tone is 2. Qualitative amniotic fluid volume is 2 Impression: Biophysical profile is 8 of 8.
[2025-05-01 11:10] VITALS: BP 103/58; PULSE 81; RESP 16; TEMP 36.7
--- NOTE | 2025-05-08 10:02 | XR_ITS ---
Examination: Biophysical profile, ultrasound Date and time of exam: May 08, 2025, 1028 hours INDICATIONS: Diagnosis gestational diabetes, diagnosis leaking amniotic fluid today Technique: Multiple transabdominal sonographic images of the pelvis abdomen obtained. Attention is directed to the breathing movement, gross body movement, amniotic fluid volume and tone. Findings: Amniotic fluid index 13.6 cm Total biophysical profile is 8 of 8. breathing movement is 2. Gross body movement is 2. tone is 2. Qualitative amniotic fluid volume is 2 Impression: Biophysical profile is 8 of 8.
[2025-05-08 11:05] VITALS: BP 102/77; PULSE 101; RESP 16; TEMP 36.9
== END 2025-05-08 23:59 | disposition home or self-care (01) ==
LOC: S4S1 09:55
PROVIDERS: PCP Family Medicine; Referring Provider Advanced Practice Midwife; Visit Provider Advanced Practice Midwife
DX: O24.410 Gestational diabetes mellitus in pregnancy, diet controlled (principal); O34.211 Maternal care for low transverse scar from previous cesarean delivery; O09.93 Supervision of high risk pregnancy, unspecified, third trimester; Z3A.38 38 weeks gestation of pregnancy
CPT/HCPCS: 59025; 76819

== ENCOUNTER 2025-05-11 05:30 | Inpatient (IN) | payer MEDICAID, SELFPAY ==
[2025-05-11] VITALS (22 sets, daily range): BP systolic 0–119; BP diastolic 0–80; PULSE 61–94; RESP 15–24; TEMP 36.5–37.1; O2SAT 96–100; BMI 27.1
--- NOTE | 2025-05-11 02:12 | ESHP_ITS ---
Documentation for date of: 05/11/25 OB Labor/Induct. HPI History of Present Illness Chief complaint: Schedule repeat : 4 Para: 2 Term pregnancies: 2 pregnancies: 0 Living children: 2 History of Abortions: Spontaneous and Elective: 1 History of sections: Yes MARNIE: 05/18/25 Gestational Age (weeks): 39 History of present illness: Patient is a 29-year-old 4 para 2-0-1-2 at 39 weeks and 0 days with estimated due date of 05/18/2025 based on 7 weeks ultrasound who is presenting for scheduled repeat low-transverse . Patient denies any contractions or leakage of fluid and reports adequate movements Current is significant for diet-controlled gestational diabetes with good glycemic control. labs include blood group O+ antibody screen negative RPR nonreactive rubella immune hepatitis B negative HIV negative gonorrhea and Chlamydia negative NIPT and carrier screen negative history of previous x 2. Patient had abnormal 3-hour glucose tolerance and her diabetes is diet managed. Group B strep is negative on 04/29/2025 Past Medical History Surgical History SURGICAL: Positive Section Meds Home Medications and Allergies Allergies Allergy/AdvReac Type Severity Reaction Status Date / Time No Known Allergies Allergy Verified 05/11/25 05:36 OB Exam Constitutional Constitutional: no acute distress Routine HEENT Exam Head: Present normocephalic and atraumatic Eye: Present EOMI and PERRL ENT: Present mucous membranes moist Routine Neck Exam Neck: Present supple and trachea midline Routine Cardiovascular Exam Cardiovascular: Present RRR Routine Abdominal Exam Abdominal: Present soft and normoactive bowel sounds Detailed Labor and Delivery Exam Dilation (cm): 0 Membranes: intact Baseline heart rate: 140 monitor accelerations: 15x15 monitor decelerations: None terminal superintendent variability: Average (6-10) Routine Extremities Exam Extremities: Present full ROM Routine Skin Exam Skin: Present intact, dry and warm Routine Neurological Exam Neurological: Present alert, oriented X3 and CN II-XII intact Routine Psychiatric Exam Psychiatric: Present normal affect and normal thought process OB Results Labs 05/11/25 06:11 OB Assessment & Plan Assessment and Plan (1) Encounter for supervision of high risk in third trimester, antepartum: Status: Acute (2) Diet controlled gestational diabetes mellitus (GDM) in third trimester: Status: Acute (3) Maternal care for low transverse scar from previous delivery: Status: Acute Assessment and plan: Admit to inpatient status for repeat low transverse IV access, CBC, type and screen, LR at 125, RPR, COVID-19 test GBS negative Ancef 2 g prior to surgery start Boston catheter to drainage SCDs for DVT prophylaxis Anesthesia to preop for spinal anesthesia Scheduled for surgery. (4) Previous section: Status: Acute
[2025-05-11] MEDS: RINGERS LACTATED 1000 ML 1,000 ML 100 ML IV (06:14)
[2025-05-11 06:55] LABS: Basophils # (Auto) 0.0 Thou/mm3 (0.0-0.2); Basophils % (Auto) 0 % (0-2.5); Eosinophils # (Auto) 0.1 Thou/mm3 (0.0-0.5); Eosinophils % (Auto) 1 % (0-10); Hematocrit 34.9 % (36.0-46.0); Hemoglobin 11.2 g/dL (12.0-16.0); Immature Granulocytes Auto 0.10 Thou/mm3 (0.00-0.00); Lymphocytes # (Auto) 2.0 Thou/mm3 (1.0-4.8); Lymphocytes % (Auto) 29 % (10-50); Mean Corpuscular HGB Conc 32.1 g/dl (31.0-37.0); Mean Corpuscular Hemoglobin 27.6 pg (25.0-35.0); Mean Corpuscular Volume 86 fL (80-100); Monocytes # (Auto) 0.7 Thou/mm3 (0.0-0.8); Monocytes % (Auto) 11 % (0-12); Neutrophils # (Auto) 3.9 Thou/mm3 (1.8-7.7); Neutrophils % (Auto) 58 % (37-80); Nucleated Red Blood Cell # 0.00 Thou/mm3 (0.00-0.00); Nucleated Red Blood Cell % 0 /100 WBC (0); Platelet Count 260 Thou/mm3 (140-440); RDW Standard Deviation 47.0 fL (36.4-46.3); Red Blood Count 4.06 Miln/mm3 (4.00-5.20); White Blood Count 6.8 Thou/mm3 (3.6-11.0)
[2025-05-11] MEDS: FAMOTIDINE INJ 10 MG/ML VIAL 2 ML 20 MG IV (07:25)
[2025-05-11] MEDS: METOCLOPRAMIDE INJ 5 MG/ML VIAL 2 ML 10 MG IVP (07:25)
[2025-05-11] MEDS: ceFAZolin/D5W 2 GM IV 2 GM/100 ML BAG IV (07:25)
[2025-05-11 07:34] LABS: Syphilis Nonreactive (Nonreactive)
--- NOTE | 2025-05-11 08:48 | PD.GYNPROC ---
Operative Note - [employer] Procedure Date of procedure: 05/11/25 Procedure Performed: Repeat low-transverse section Indication: 29-year-old 3 para 2 at 39 weeks and 0 days with previous x 2 Diet-controlled gestational diabetes with good glycemic control Anesthesia type: Spinal Procedure description: Informed consent was obtained and the patient was taken to the operating room. Identity was confirmed by double identifiers and she was placed on the operating table. Spinal anesthesia was administered and patient was positioned in the supine position. The abdomen and perineum were prepped in the usual sterile fashion and a Boston catheter was placed to continuous drainage. The patient was now prepped and draped. A Pfannenstiel skin incision was made through the patient's old scar and the thickened keloid was excised out. Incision was carried down through the subcutaneous layers up to the rectus fascia which was incised on either side of the midline. The fascial incisions were extended bilaterally. The upper edge of the rectus fascia was grasped using a pair of Vinnie clamps and placed under traction. The rectus muscle was dissected off the rectus fascia. The same procedure was repeated on the inferior aspect. The rectus muscle was in the midline and the peritoneum was entered bluntly. The peritoneal opening was stretched but the opening was not adequate and significant intraperitoneal adhesions were identified. At the lesions were taken down carefully to protect the bladder and other intra-abdominal structures. Once adequate room was created the Jonah retractor was placed. A Nichol Sinclair low transverse uterine incision was made. The membranes were ruptured and clear amniotic fluid was revealed. The uterine incision was stretched. The fetus was noted to be in the cephalic position and delivery was accomplished in the usual fashion. A single loop of nuchal cord was reduced at the time of delivery. The umbilical cord was doubly clamped divided and the infant was handed over to the waiting team. The placenta was delivered manually. Cord gas samples were obtained. The interior of the uterus was thoroughly cleaned of all membranes and debris. The uterus was now exteriorized. The angles of the incision were identified and a vertical extension was noted going down the left side including the left uterine artery. All the edges were grabbed by a series of Allis clamps and the uterine incision was closed using 1 Monocryl in 2 layers. The first layer in a running locked fashion in the second layer in an imbricated fashion. Once the repair was completed there were additional points where some bleeding was noted and [id number] stitches were applied to compress the bleeding points. The area of the extension was also oozy and additional sutures were placed for hemostasis. A layer of Surgicel was placed to secure satisfactory hemostasis. The uterus was now returned into the peritoneal cavity. The rectus muscle was inspected and multiple bleeding points were noted that were cauterized. Once hemostasis was satisfactory the rectus muscles were reapproximated. The rectus fascia was now closed using 1 PDS in a running fashion. The subcutaneous layer was reapproximated 2-0 Monocryl STRATAFIX. The skin was closed using 4-0 Monocryl. The skin was now cleaned and a Dermabond Prineo dressing was applied. The patient was undraped. The skin was thoroughly cleaned on her sides and back and a pressure dressing was applied. Patient was now transferred to the recovery room in a stable and awake condition. Patient tolerated the entire procedure well. No complications were encountered. All instrument, sponge and lap counts were correct x 2. Estimated blood loss (ml): 750 Complications: none Surgical staff Operation Date: 05/11/25 07:45 <No data on this case meets the specified criteria> Diagnosis Discharge Diagnosis (1) Encounter for supervision of high risk in third trimester, antepartum: Status: Acute (2) Diet controlled gestational diabetes mellitus (GDM) in third trimester: Status: Acute (3) Maternal care for low transverse scar from previous delivery: Status: Acute (4) delivery delivered: Status: Acute Problem List Completed Was Problem List Reviewed/Reconciled?: Yes
[2025-05-11] MEDS: DOCUSATE SOD 100 MG CAPSULE PO (10:39)
[2025-05-11] MEDS: OXYTOCIN in NS 20 units 20 UNIT/1,000 ML BAG 125 UNIT IV (14:50)
[2025-05-11] MEDS: KETOROLAC INJ 30 MG/ML VIAL IVP (17:28)
[2025-05-12] MEDS: KETOROLAC INJ 30 MG/ML VIAL IVP (02:34)
[2025-05-12 03:36] VITALS: BP 105/68; PULSE 77; RESP 15; TEMP 36.9; O2SAT 95
[2025-05-12 06:06] LABS: Basophils # (Auto) 0.0 Thou/mm3 (0.0-0.2); Basophils % (Auto) 0 % (0-2.5); Eosinophils # (Auto) 0.0 Thou/mm3 (0.0-0.5); Eosinophils % (Auto) 0 % (0-10); Hematocrit 27.6 % (36.0-46.0); Hemoglobin 9.1 g/dL (12.0-16.0); Immature Granulocytes Auto 0.08 Thou/mm3 (0.00-0.00); Lymphocytes # (Auto) 1.3 Thou/mm3 (1.0-4.8); Lymphocytes % (Auto) 14 % (10-50); Mean Corpuscular HGB Conc 33.0 g/dl (31.0-37.0); Mean Corpuscular Hemoglobin 28.1 pg (25.0-35.0); Mean Corpuscular Volume 85 fL (80-100); Monocytes # (Auto) 0.7 Thou/mm3 (0.0-0.8); Monocytes % (Auto) 8 % (0-12); Neutrophils # (Auto) 7.3 Thou/mm3 (1.8-7.7); Neutrophils % (Auto) 77 % (37-80); Nucleated Red Blood Cell # 0.00 Thou/mm3 (0.00-0.00); Nucleated Red Blood Cell % 0 /100 WBC (0); Platelet Count 210 Thou/mm3 (140-440); RDW Standard Deviation 46.9 fL (36.4-46.3); Red Blood Count 3.24 Miln/mm3 (4.00-5.20); White Blood Count 9.4 Thou/mm3 (3.6-11.0)
[2025-05-12 07:20] VITALS: BP 93/68; PULSE 73; RESP 17; TEMP 36.7; O2SAT 98
[2025-05-12] MEDS: DOCUSATE SOD 100 MG CAPSULE PO (08:22)
--- NOTE | 2025-05-12 10:25 | ESPR_ITS ---
Subjective Subjective Interval history: Delivery type: Patient doing well this morning. No acute complaints. Ambulating, tolerating p.o., and voiding without difficulty. HTN/Pre-E screen negative: No CP, SOB, PRESSLEY, visual changes, RUQ pain. : Yes Lochia: diminishing Bowel: Flatus + / BM + UOP: Adequate Exam Vital Signs Temp Pulse Resp BP Pulse Ox O2 Del Method 98.1 F 73 17 93/68 98 Room Air 05/12/25 07:20 05/12/25 07:20 05/12/25 07:20 05/12/25 07:20 05/12/25 07:20 05/12/25 07:20 Constitutional Constitutional: no acute distress Routine HEENT Exam Head: Present normocephalic and atraumatic Eye: Present EOMI and PERRL ENT: Present mucous membranes moist Routine Neck Exam Neck: Present supple and trachea midline Routine Respiratory Exam Respiratory: Present chest non-tender, lungs clear, normal breath sounds and no resp distress Routine Cardiovascular Exam Cardiovascular: Present RRR Routine Abdominal Exam Abdominal: Present soft and normoactive bowel sounds Routine Extremities Exam Extremities: Present full ROM Routine Skin Exam Skin: Present intact, dry and warm Routine Neurological Exam Neurological: Present alert, oriented X3 and CN II-XII intact Routine Psychiatric Exam Psychiatric: Present normal affect and normal thought process Objective Labs 05/12/25 04:47 Labs: Laboratory Results - last 24 hr 05/12/25 04:47 WBC 9.4 RBC 3.24 L Hgb 9.1 L D Hct 27.6 L MCV 85 MCH 28.1 MCHC 33.0 RDW Std Deviation 46.9 H Plt Count 210 D Neut % (Auto) 77 Lymph % (Auto) 14 [place] % (Auto) 8 Eos % (Auto) 0 Baso % (Auto) 0 Neut # (Auto) 7.3 Lymph # (Auto) 1.3 [place] # (Auto) 0.7 Eos # (Auto) 0.0 Baso # (Auto) 0.0 Immature Gran # (Auto) 0.08 H Absolute Nucleated RBC 0.00 Immature Gran % 1 H Nucleated RBC % 0 Assessment & Plan Problem List (1) Encounter for supervision of high risk in third trimester, antepartum: Status: Acute (2) Diet controlled gestational diabetes mellitus (GDM) in third trimester: Status: Acute (3) Maternal care for low transverse scar from previous delivery: Status: Acute (4) delivery delivered: Status: Acute Assessment and plan: 1. Continue routine /post-op care 2. Labs reviewed, cbc appropriate, repeat CBC ordered for 4 PM 3. Remove dressing/Boston 4. Encourage to ambulate, shower 5. Encourage PO intake, breast feeding Time Spent With Patient Time: Total time spent is greater than 50% in coordination of care (as documented) at patient's floor/unit and/or counseling patient:
--- NOTE | 2025-05-12 10:32 | OBDSUM_ITS ---
Data ([place]) Data Hx Section: Yes : 4 : 0 Livin Abortions: Spontaneous & Theraputic: 1 Delivery Data ([place]) Labor Data Induction/Augmentation Agent: None ROM date: 05/11/25 ROM time: 08:10 Amniotic membrane rupture type: Artificial Amniotic fluid description: Clear Delivery Data delivery date: 05/11/25 [place] delivery time: 08:10 Placenta delivery date: 05/11/25 Placenta delivery time: 08:11 Delivered by: Forrest Stone Delivery nurse: MADALYN Tomlinson nurse: ESE Clam Picker at delivery: No Support person(s) at delivery: FOB Other staff at delivery: ELA, SANKET, YISSEL, LEONORA Delivery Method Delivery method: Low Transverse Presentation: Vertex Anesthesia Type Anesthesia Type: Spinal Anesthesia type: Spinal Placenta Placenta delivery description: Manual Removal Cord blood sent to lab: Yes cord blood collection: Cord Blood Type Episiotomy Episiotomy description: None Umbilical Cord cord description: 3 Vessels [place] Data (Landin) Data order: 1 [place]'s gender: Male Identification band number: [id number] weight (gms): 3810 g Weight (pounds): 8 lbs and 6.4 ozs length: 51 cm 1 minute: 9 5 minutes: 9
[2025-05-12 11:50] VITALS: BP 113/76; PULSE 75; RESP 18; TEMP 36.9; O2SAT 99
[2025-05-12] MEDS: HYDROcodone/APAP 5/325 TABLET 2 TAB PO (12:19)
[2025-05-12 12:32] LABS: Basophils # (Auto) 0.0 Thou/mm3 (0.0-0.2); Basophils % (Auto) 0 % (0-2.5); Eosinophils # (Auto) 0.0 Thou/mm3 (0.0-0.5); Eosinophils % (Auto) 0 % (0-10); Hematocrit 27.1 % (36.0-46.0); Immature Granulocytes Auto 0.06 Thou/mm3 (0.00-0.00); Lymphocytes # (Auto) 1.4 Thou/mm3 (1.0-4.8); Lymphocytes % (Auto) 16 % (10-50); Mean Corpuscular HGB Conc 31.7 g/dl (31.0-37.0); Mean Corpuscular Hemoglobin 27.6 pg (25.0-35.0); Mean Corpuscular Volume 87 fL (80-100); Monocytes # (Auto) 0.7 Thou/mm3 (0.0-0.8); Monocytes % (Auto) 8 % (0-12); Neutrophils # (Auto) 6.6 Thou/mm3 (1.8-7.7); Neutrophils % (Auto) 75 % (37-80); Nucleated Red Blood Cell # 0.00 Thou/mm3 (0.00-0.00); Nucleated Red Blood Cell % 0 /100 WBC (0); Platelet Count 223 Thou/mm3 (140-440); RDW Standard Deviation 47.8 fL (36.4-46.3); Red Blood Count 3.12 Miln/mm3 (4.00-5.20); White Blood Count 8.7 Thou/mm3 (3.6-11.0)
[2025-05-12 12:45] LABS: Hemoglobin 8.6 g/dL (12.0-16.0)
--- NOTE | 2025-05-12 13:12 | PC.NURSE ---
Dr. Stone made aware of cbc, no new orders
[2025-05-12] MEDS: IBUPROFEN TAB 400 MG TABLET 800 MG PO (17:01)
[2025-05-12 19:47] VITALS: BP 101/62; PULSE 81; RESP 16; TEMP 36.9; O2SAT 98
[2025-05-13] MEDS: HYDROcodone/APAP 5/325 TABLET 1 TAB PO ×2 (01:52→08:37)
[2025-05-13 03:55] VITALS: BP 113/72; PULSE 70; RESP 16; TEMP 36.9; O2SAT 99
[2025-05-13 08:00] VITALS: BP 104/69; PULSE 85; RESP 18; TEMP 36.9; O2SAT 100
[2025-05-13] MEDS: DOCUSATE SOD 100 MG CAPSULE PO (08:04)
--- NOTE | 2025-05-13 10:10 | ESDS_ITS ---
DS: Providers Provider Date of admission: 05/11/25 05:30 Primary care physician: Physician No Primary/Family Admitting Provider: Forrest Stone MD Attending Provider on Admission: Forrest Stone MD Consults: 05/11/25 09:16 Referral Routine Comment: Attending Provider on DC: Eveline Cole MD Discharging Provider: Eveline Cole MD DS: Diagnosis Discharge Diagnosis (1) Diet controlled gestational diabetes mellitus (GDM) in third trimester: Status: Acute (2) Maternal care for low transverse scar from previous delivery: Status: Acute (3) delivery delivered: Status: Acute Problem List Completed Was Problem List Reviewed/Reconciled?: Yes Summary/Hosp Course Brief History: Patient is a 29-year-old 4 para 2-0-1-2 at 39 weeks and 0 days with estimated due date of 05/18/2025 based on 7 weeks ultrasound who is presenting for scheduled repeat low-transverse . Patient denies any contractions or leakage of fluid and reports adequate movements Current is significant for diet-controlled gestational diabetes with good glycemic control. labs include blood group O+ antibody screen negative RPR nonreactive rubella immune hepatitis B negative HIV negative gonorrhea and Chlamydia negative NIPT and carrier screen negative history of previous x 2. Patient had abnormal 3-hour glucose tolerance and her diabetes is diet managed. Group B strep is negative on 04/29/2025/ repeat LTCS on 05/11/2025 Peripartum Data Delivery Method: Low Transverse Episiotomy Description: None Procedures: Procedures Operation Date: 05/11/25 07:45 Actual Procedure Side Surgeon p in OB Not Applicable Forrest Stone MD complications: none Status at Discharge Cognitive/behavioral status at discharge: Patient has no complaints no Headache or blurry vision or epigastric pain No Chest pain or SOB No Palpitations No Nausea or vomiting or constipation No Back pain No Dysuria no Dizziness no calf pain / independent ambulation She is voiding spontaneously / adequately Passing flatus yes/ BM Lochia average yes Breast/ Bottle feeding both Time Spent with Patient Time attestation: Total time spent providing and/or coordinating discharge services: Time spent: Greater than 30 minutes Exam Vital Signs Temp Pulse Resp BP Pulse Ox O2 Del Method 98.4 F 85 18 104/69 100 Room Air 05/13/25 08:00 05/13/25 08:00 05/13/25 08:00 05/13/25 08:00 05/13/25 08:00 05/13/25 08:00 Narrative Exam alert x3 chest clear CVS RRR NO thyromegaly Uterus is nontender Uterus is firm/ appropriate size Just below the umbilicus Bowel sounds present Abdomen soft no hernias noted/no CVAT Incision CDI No drainage Appropriately tender No calf tenderness Edema mild Discharge Plan Plan Patient Disposition: HOME (Self Care) Patient condition on transfer: Stable Prescriptions/Referrals Prescriptions/Med Rec: New hydrocodone-acetaminophen 5-325 mg tablet 1 tab PO Q6H MDD 4 PRN (Reason: pain) 5 Days Qty: 20 0RF docusate sodium [Stool Softener] 100 mg capsule 100 mg PO QDAY 30 Days Qty: 30 0RF ibuprofen 600 mg tablet 600 mg PO Q6H MDD 4 PRN (Reason: fever or pain) 10 Days Qty: 40 0RF Continued Vitamin 27 mg iron- 800 mcg tablet 1 tab PO QDAY Qty: 60 2RF (DME) Blood Glucose Test Strip See Rx Instructions .MEDSUPPLY Qty: 50 3RF Rx Instructions: As directed, test 4 tie daily (DME) lancets Misc See Rx Instructions .MEDSUPPLY Qty: 100 4RF Rx Instructions: As directed, test 4 time daily (DME) blood-glucose meter Kit See Rx Instructions .MEDSUPPLY Qty: 1 0RF Rx Instructions: As directed, test 4 time daily Referrals: Forrest Stone MD [Physician, FIRESTOPPER TECHNICIAN] No Primary/Family,Physician [Primary Care Provider] Patient/Caregiver Discharge Instructions Meds to Beds: Yes Other Discharge Activity Instructions:: [address] en [place] semana Education Materials: After Delivery Concerns, Breast Care After , After a , Nutrition While , Understanding Depression, : Caring for Yourself, C Section Dc, Feel Healthy After Print Language: Danish Stand Alone Forms: Lizet Award Info., Patient Portal Info Letter Discharge Order Discharge Orders: Discharge (Routine); Ordered 05/13/25 Ordered By: Eveline Cole Planned Discharge Date 05/13/25
== END 2025-05-13 11:17 | disposition home or self-care (01) | DRG 540 ==
LOC: S4SX 05:48 → S4NX 08:05
PROVIDERS: Admitting Provider Obstetrics & Gynecology; Visit Provider Obstetrics & Gynecology
PROC: 10D00Z1 Extraction of Products of Conception, Low, Open Approach (ICD-10-PCS; CPT 59514; principal; 2025-05-11 07:30)
DX: O34.211 Maternal care for low transverse scar from previous cesarean delivery (principal); Z37.0 Single live birth; Z3A.39 39 weeks gestation of pregnancy; O69.81X0 Labor and delivery complicated by cord around neck, without compression, not applicable or unspecified; O24.420 Gestational diabetes mellitus in childbirth, diet controlled
CPT/HCPCS: 36415; 59409; 85025; 86780; 86850; 86900; 86901; 86923; 94762; A4217; A4314; A4649; J0689; J1885; J2250; J2274; J2590; J2765; J3010; J3290; J3490; J7120; S0191; A9270; J2270